=== PATIENT | male | born 1980 | race Caucasian/White ===

== ENCOUNTER 2019-05-14 21:21 | Observation (INO) | payer MEDICAID ==
[2019-05-14] MEDS ORDERED: Sodium Chloride 0.9% 10 ML Syringe FLUSH PRN (21:35)
[2019-05-14] MEDS ORDERED: Diltiazem 50 MG/10 ML SDV IVPUSH ONE (21:37)
[2019-05-14] MEDS ORDERED: Diltiazem 125 MG in Sodium Chloride 0.9% 100 ML IV SCH (21:45)
[2019-05-14] MEDS ORDERED: Sodium Chloride 0.9% 500 ML IV ONE (22:29)
[2019-05-15] MEDS ORDERED: cefTRIAXone 2 GM in Sodium Chloride 0.9% 100 ML IV ONE (00:15)
--- NOTE | 2019-05-15 00:15 | EDM.PDOC ---
ED HPI GENERAL MEDICAL PROBLEM - General Chief Complaint: Respiratory Problem Stated Complaint: CHEST PAIN PRESSURE HEAD AND EYES HAS AFIB Time Seen by Provider: 05/14/19 21:27 Source of Information: Reports: Patient History Limitations: Reports: No Limitations - History of Present Illness INITIAL COMMENTS - FREE TEXT/NARRATIVE: The patient presents with palpitations, shortness of breath and a cough. This started this morning. He also has chest tightness on the right side. He is traveling through on his way to [place] to visit family. He has a known history of A-fib. He feels like his heart is racing and it is as high as 170 at times. He denies having a fever or chills. He is on eliquis, amiodarone, glipizide and lasix. He has swelling in his legs with more swelling in his left leg. He has no abdominal pain, nausea or vomiting. Onset: Gradual Duration: Hour(s): Location: Reports: Chest Quality: Reports: Sharp Severity: Moderate Improves with: Reports: None Worsens with: Reports: None Associated Symptoms: Reports: Chest Pain, Cough, Shortness of Breath. 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: EKG Bilateral Lower Chest Pain Score (Numeric/FACES): 8 - Related Data Allergies Allergy/AdvReac Type Severity Reaction Status Date / Time No Known Allergies Allergy Verified 05/14/19 21:28 Home Meds: Home Meds Amiodarone HCl [Pacerone] 400 mg PO DAILY 05/14/19 [History] Apixaban [Eliquis] 5 mg PO DAILY 05/14/19 [History] Furosemide [Lasix] 40 mg PO DAILY 05/14/19 [History] glipiZIDE [Glucotrol XL] 5 mg PO DAILY 05/14/19 [History] Past Medical History Cardiovascular History: Reports: Afib, Hypertension Genitourinary History: Reports: Other (See Below) Other Genitourinary History: states he has "kidney issues" - Past Surgical History Cardiovascular Surgical History: Reports: Cardiac Ablation Social & Family History - Tobacco Use Smoking Status *Q: Never Smoker - Recreational Drug Use Recreational Drug Use: No ED ROS GENERAL - Review of Systems Review Of Systems: See Below Constitutional: Reports: No Symptoms HEENT: Reports: No Symptoms Respiratory: Reports: Shortness of Breath, Cough Cardiovascular: Reports: Chest Pain Endocrine: Reports: No Symptoms GI/Abdominal: Reports: No Symptoms : Reports: No Symptoms ED EXAM, GENERAL - Physical Exam Exam: See Below Exam Limited By: No Limitations General Appearance: Alert, No Apparent Distress Ears: Normal External Exam Nose: Normal Inspection Head: Atraumatic, Normocephalic Neck: Normal Inspection Respiratory/Chest: No Respiratory Distress, Decreased Breath Sounds Cardiovascular: Normal Peripheral Pulses, Tachycardia, Irregularly Irregular, Other (Bilateral 3+ edema) GI/Abdominal: Soft, Non-Tender, No Organomegaly, No Mass Back Exam: Normal Inspection Extremities: Normal Inspection EKG INTERPRETATION EKG Date: 05/15/19 Time: 21:25 Rhythm: A-Fib Rate (Beats/Min): 155 [place]: Normal QRS: Normal ST-T: Normal QT: Normal Course - Vital Signs Last Recorded V/S: Last Vital Signs Temp 98.2 F 05/14/19 21:26 Pulse 77 05/15/19 01:00 Resp 18 05/15/19 01:00 BP 104/73 05/15/19 01:00 Pulse Ox 96 05/15/19 01:00 - Orders/Labs/Meds Orders: Active Orders 24 hr Category Date Time Status Cardiac Monitoring [RC] . DIRECTED Care 05/14/19 21:35 Active EKG Documentation Completion [RC] STAT Care 05/14/19 21:36 Active Peripheral IV Care [RC] . DIRECTED Care 05/14/19 21:36 Active Ang Chest [CT] Stat Exams 05/14/19 22:30 Taken Chest 1V Frontal [CR] Stat Exams 05/14/19 21:36 Taken CBC WITH AUTO DIFF [HEME] Stat Lab 05/15/19 06:30 Received CMP [COMPREHENSIVE METABOLIC PN,CMP] [CHEM] Stat Lab 05/15/19 06:30 Received CULTURE BLOOD [BC] Stat Lab 05/15/19 00:30 Received CULTURE BLOOD [BC] Stat Lab 05/15/19 00:35 Results PRO B-TYPE NATRIUR PEPT,BNPPRO [CHEM] Stat Lab 05/14/19 21:40 Received Diltiazem 125 mg Med 05/14/19 21:45 Active Sodium Chloride 0.9% [Normal Saline] 100 ml IV TITRATE Sodium Chloride 0.9% [Saline Flush] Med 05/14/19 21:35 Active 10 ml FLUSH ASDIRECTED PRN Blood Culture x2 Reflex Set [OM.PC] Stat Oth 05/15/19 00:10 Ordered Peripheral IV Insertion Adult [OM.PC] Stat Oth 05/14/19 21:35 Ordered Medication Orders Diltiazem HCl 125 mg/ Sodium (Chloride) 125 mls @ 10 mls/hr IV TITRATE GEORGE; Protocol Last Admin: 05/14/19 21:51 Dose: 10 mg/hr, 10 mls/hr Sodium Chloride (Saline Flush) 10 ml FLUSH ASDIRECTED PRN PRN Reason: Keep Vein Open Last Admin: 05/14/19 21:45 Dose: 10 ml Labs: Laboratory Tests 05/14/19 05/14/19 05/14/19 Range/Units 21:40 21:40 21:40 WBC 13.85 H (4.23-9.07) K/mm3 RBC 4.93 (4.63-6.08) M/mm3 Hgb 13.6 L (13.7-17.5) gm/L Hct 41.6 (40.1-51.0) % MCV 84.4 (79.0-92.2) fl MCH 27.6 (25.7-32.2) pg MCHC 32.7 (32.2-35.5) g/dl RDW Std Deviation 40.7 (35.1-43.9) fL Plt Count 291 (163-337) K/mm3 MPV 10.8 (9.4-12.3) fl Neut % (Auto) 62.6 (34.0-67.9) % Lymph % (Auto) 28.1 (21.8-53.1) % [place] % (Auto) 7.7 (5.3-12.2) % Eos % (Auto) 0.9 (0.8-7.0) Baso % (Auto) 0.3 (0.1-1.2) % Neut # (Auto) 8.67 H (1.78-5.38) K/mm3 Lymph # (Auto) 3.89 H (1.32-3.57) K/mm3 [place] # (Auto) 1.07 H (0.30-0.82) K/mm3 Eos # (Auto) 0.13 (0.04-0.54) K/mm3 Baso # (Auto) 0.04 (0.01-0.08) K/mm3 D-Dimer, Quantitative 1.99 H (0.19-0.50) mg/L Sodium 140 (136-145) mEq/L Potassium 3.6 (3.5-5.1) mEq/L Chloride 102 (98-107) mEq/L Carbon Dioxide 26 (21-32) mEq/L Anion Gap 15.6 H (5-15) BUN 25 H (7-18) mg/dL Creatinine 1.6 H (0.7-1.3) mg/dL Est Cr Clr Drug Dosing 67.33 mL/min Estimated GFR (MDRD) 49 (>60) mL/min BUN/Creatinine Ratio 15.6 (14-18) Glucose 139 H (74-106) mg/dL Lactic Acid (0.4-2.0) mmol/L Calcium 8.8 (8.5-10.1) mg/dL Total Bilirubin 0.9 (0.2-1.0) mg/dL AST 52 H (15-37) U/L ALT 102 H (16-63) U/L Alkaline Phosphatase 58 (46-116) U/L Troponin I 0.022 (0.00-0.056) ng/mL Total Protein 6.7 (6.4-8.2) g/dl Albumin 3.0 L (3.4-5.0) g/dl Globulin 3.7 gm/dL Albumin/Globulin Ratio 0.8 L (1-2) TSH 3rd Generation 3.289 (0.358-3.74) uIU/mL 05/15/19 Range/Units 00:30 WBC (4.23-9.07) K/mm3 RBC (4.63-6.08) M/mm3 Hgb (13.7-17.5) gm/L Hct (40.1-51.0) % MCV (79.0-92.2) fl MCH (25.7-32.2) pg MCHC (32.2-35.5) g/dl RDW Std Deviation (35.1-43.9) fL Plt Count (163-337) K/mm3 MPV (9.4-12.3) fl Neut % (Auto) (34.0-67.9) % Lymph % (Auto) (21.8-53.1) % [place] % (Auto) (5.3-12.2) % Eos % (Auto) (0.8-7.0) Baso % (Auto) (0.1-1.2) % Neut # (Auto) (1.78-5.38) K/mm3 Lymph # (Auto) (1.32-3.57) K/mm3 [place] # (Auto) (0.30-0.82) K/mm3 Eos # (Auto) (0.04-0.54) K/mm3 Baso # (Auto) (0.01-0.08) K/mm3 D-Dimer, Quantitative (0.19-0.50) mg/L Sodium (136-145) mEq/L Potassium (3.5-5.1) mEq/L Chloride (98-107) mEq/L Carbon Dioxide (21-32) mEq/L Anion Gap (5-15) BUN (7-18) mg/dL Creatinine (0.7-1.3) mg/dL Est Cr Clr Drug Dosing mL/min Estimated GFR (MDRD) (>60) mL/min BUN/Creatinine Ratio (14-18) Glucose (74-106) mg/dL Lactic Acid 0.9 (0.4-2.0) mmol/L Calcium (8.5-10.1) mg/dL Total Bilirubin (0.2-1.0) mg/dL AST (15-37) U/L ALT (16-63) U/L Alkaline Phosphatase (46-116) U/L Troponin I (0.00-0.056) ng/mL Total Protein (6.4-8.2) g/dl Albumin (3.4-5.0) g/dl Globulin gm/dL Albumin/Globulin Ratio (1-2) TSH 3rd Generation (0.358-3.74) uIU/mL Meds: Medications Generic Name Dose Route Start Last Admin Trade Name Freq PRN Reason Stop Dose Admin Diltiazem HCl 125 mg/ Sodium 125 mls @ 10 mls/hr 05/14/19 21:45 05/14/19 21: 51 Chloride IV 10 mg/hr TITRATE GEORGE 10 mls/hr Administration Protocol 10 MG/HR Sodium Chloride 10 ml 05/14/19 21:35 05/14/19 21:45 Saline Flush FLUSH 10 ml ASDIRECTED PRN Administration Keep Vein Open Discontinued Medications Generic Name Dose Route Start Last Admin Trade Name Lesley PRN Reason Stop Dose Admin Diltiazem HCl 10 mg 05/14/19 21:37 05/14/19 21:45 Cardizem IVPUSH 05/14/19 21:38 10 mg ONETIME ONE Administration Diltiazem HCl 60 mg 05/15/19 06:07 05/15/19 06:18 Cardizem PO 05/15/19 06:08 60 mg ONETIME ONE Administration Furosemide 80 mg 05/15/19 06:06 05/15/19 06:18 Lasix IVPUSH 05/15/19 06:07 80 mg NOW ONE Administration Sodium Chloride 500 mls @ 500 mls/hr 05/14/19 22:29 05/14/19 22:45 Normal Saline IV 05/14/19 23:28 500 mls/hr .BOLUS ONE Administration Ceftriaxone Sodium 2 gm/ 100 mls @ 200 mls/hr 05/15/19 00:15 05/15/19 00:20 Sodium Chloride IV 05/15/19 00:44 200 mls/hr ONETIME ONE Administration - Re-Assessments/Exams Free Text/Narrative Re-Assessment/Exam: 05/15/19 00:23 I ordered an IV saline lock, EKG, CXR, labs, cardizem bolus of 10mg and a drip at 10mg/hr. His EKG shows atrial fribrillation with RVR of 155 with no acute changes. His CXR shows cardiomegaly with some congestive changes. His WBC was elevated at 13.85. His D-dimer was elevated at 1.99. I have ordered a CT angio of his chest. His anion gap is elevated at 15.6. His creatinine is elevated at 1.6 with a GFR of 49. His AST is elevated at 52 with an elevated at ALT of 102. His troponin is normal with a normal TSH. His CT shows pulmonary edema versus atypical infection. Several pulmonary nodules measure up to 8mm. Likely benign but he recommends follow up in 3 to 12 months. His heart rate is better now. I have ordered blood cultures, lactic acid and rocephin 2 grams IV. I feel he needs to be admitted. I will watch him here for awhile. 05/15/19 06:48 His heart rate slowed down to the 80s and 90s. I will stop the drip and give him cardizem 60mg PO. I also will give him lasix 80mg IV and repeat some labs. I called Dr Turcios and he agreed to the admission. Departure - Departure Time of Disposition: 06:50 Disposition: Admitted As Inpatient 67 Condition: Fair Clinical Impression: Atrial fibrillation with RVR, Peripheral edema, Pulmonary nodules, Cough - Discharge Information Referrals: PCP,Not In Area [Primary Care Provider] - Forms: ED Department Discharge - My Orders Last 24 Hours: My Active Orders 05/14/19 21:35 Cardiac Monitoring [RC] . DIRECTED Sodium Chloride 0.9% [Saline Flush] 10 ml FLUSH ASDIRECTED PRN Peripheral IV Insertion Adult [OM.PC] Stat 05/14/19 21:36 EKG Documentation Completion [RC] STAT Peripheral IV Care [RC] . DIRECTED Chest 1V Frontal [CR] Stat 05/14/19 21:40 PRO B-TYPE NATRIUR PEPT,BNPPRO [CHEM] Stat 05/14/19 21:45 Diltiazem 125 mg Sodium Chloride 0.9% [Normal Saline] 100 ml IV TITRATE 05/14/19 22:30 Ang Chest [CT] Stat 05/15/19 00:10 Blood Culture x2 Reflex Set [OM.PC] Stat 05/15/19 00:30 CULTURE BLOOD [BC] Stat 05/15/19 00:35 CULTURE BLOOD [BC] Stat 05/15/19 06:30 CBC WITH AUTO DIFF [HEME] Stat CMP [COMPREHENSIVE METABOLIC PN,CMP] [CHEM] Stat - Assessment/Plan Last 24 Hours: My Active Orders 05/14/19 21:35 Cardiac Monitoring [RC] . DIRECTED Sodium Chloride 0.9% [Saline Flush] 10 ml FLUSH ASDIRECTED PRN Peripheral IV Insertion Adult [OM.PC] Stat 05/14/19 21:36 EKG Documentation Completion [RC] STAT Peripheral IV Care [RC] . DIRECTED Chest 1V Frontal [CR] Stat 05/14/19 21:40 PRO B-TYPE NATRIUR PEPT,BNPPRO [CHEM] Stat 05/14/19 21:45 Diltiazem 125 mg Sodium Chloride 0.9% [Normal Saline] 100 ml IV TITRATE 05/14/19 22:30 Ang Chest [CT] Stat 05/15/19 00:10 Blood Culture x2 Reflex Set [OM.PC] Stat 05/15/19 00:30 CULTURE BLOOD [BC] Stat 05/15/19 00:35 CULTURE BLOOD [BC] Stat 05/15/19 06:30 CBC WITH AUTO DIFF [HEME] Stat CMP [COMPREHENSIVE METABOLIC PN,CMP] [CHEM] Stat
[2019-05-15] MEDS ORDERED: Furosemide 40 MG/4 ML VIAL IVPUSH ONE (06:06)
[2019-05-15] MEDS ORDERED: Diltiazem IR 60 MG Tab PO ONE (06:07)
--- NOTE | 2019-05-15 07:19 | CT ---
CT chest Technique: Multiple axial sections through the chest were obtained. Intravenous contrast was utilized. Study has been performed as a pulmonary angiogram protocol. Findings: Pulmonary arteries are moderately well-opacified. No filling defects are seen to indicate pulmonary embolism. Heart is slightly enlarged. Small mediastinal lymph nodes are seen which are within normal limits. Small portion of the visualized left upper abdomen shows a nonvisualized left kidney. Lungs show no acute parenchymal change. Noncalcified nodule noted within the right middle lobe measuring 9 mm. Much smaller nodules are seen within the subpleural location within both lung bases. Ground-glass appearance is seen. Bone window settings were reviewed which show degenerative endplate spurring within the spine. Impression: 1. No findings of pulmonary embolism. 2. Heart is mildly enlarged. Pulmonary vessels are slightly congested. Difficult to exclude early CHF. 3. 9 mm nodule within the right middle lobe. Recommend repeat noncontrast chest CT study in 6 months. Diagnostic code #9 I agree with preliminary report from [facility], finalized on 05/13/19, 12:14 AM Central Time
--- NOTE | 2019-05-15 07:19 | CR ---
Chest: Portable view of the chest was obtained. Comparison: No prior chest x-ray is available. Findings: Heart is enlarged. Pulmonary vessels are minimally increased. Lungs otherwise are clear. Bony structures are unremarkable. Impression: 1. Cardiomegaly. Mild pulmonary vascular congestion. Diagnostic code #3
[2019-05-15] MEDS ORDERED: Doxycycline 100 MG Cap PO SCH (09:15)
[2019-05-15] MEDS ORDERED: Doxycycline 100 MG in Sodium Chloride 0.9% 100 ML IV ONE (09:30)
--- NOTE | 2019-05-15 09:47 | PCM.HP ---
H&P History of Present Illness - General Date of Service: 05/15/19 Admit Problem/Dx: Admission Diagnosis/Problem Admission Diagnosis/Problem Atrial fibrillation Source of Information: Patient - History of Present Illness Initial Comments - Free Text/Narative: 38-year-old male with history of atrial fibrillation presented to the emergency room last night with rapid ventricular response. Patient states that yesterday morning he started developing some shortness of breath, dyspnea on exertion, chest pain, and difficulty swallowing. Patient states he comes in and out of A. fib, but this time it would not resolve. He complained of right upper chest pain or pressure. He states he vomited after drinking water. Patient is on amiodarone, but had not taken it in 2 days secondary to traveling from [place], [place] through [facility] on his way to [place]. In the emergency room patient was given a bolus of Cardizem 10 mg IV and then placed on a Cardizem drip. Rate did get under control and the Cardizem drip was stopped and he was started on Cardizem IR 60 mg this morning. Patient's last dose of Eliquis was yesterday morning. Patient also states his lower extremities are more swollen than normal and he was given IV Lasix in the emergency room. Patient did have a positive d-dimer and a CT scan showed early pulmonary congestion consistent with early CHF. Also there was a 9 mm nodule in the right middle lobe. Recommendation was to get a noncontrast CT in 6 months. There was also some concern for atypical infection on CT. He was given Rocephin in the emergency room. Patient is currently resting comfortably with no chest pain, palpitations, or shortness of breath. He does complain still of some lower extremity edema. Bilateral Lower Chest Pain Score (Numeric/FACES): 8 - Related Data Allergies/Adverse Reactions: Allergies Allergy/AdvReac Type Severity Reaction Status Date / Time No Known Allergies Allergy Verified 05/14/19 21:28 Home Medications: Home Meds Amiodarone HCl [Pacerone] 400 mg PO DAILY 05/14/19 [History] Apixaban [Eliquis] 5 mg PO BID 05/14/19 [History] Furosemide [Lasix] 40 mg PO DAILY 05/14/19 [History] glipiZIDE [Glucotrol XL] 5 mg PO DAILY 05/14/19 [History] Past Medical History Cardiovascular History: Reports: Afib, Hypertension Genitourinary History: Reports: Other (See Below) Other Genitourinary History: states he has "kidney issues", patient states doctor had told him one kidney was failing after a test showed he had alot of protein in urine...about a year ago Other Endocrine/Metabolic History: patient used to take glipizide...states the doctor took him off of it. - Past Surgical History Cardiovascular Surgical History: Reports: Cardiac Ablation Social & Family History - Family History Endocrine/Metabolic: Reports: Diabetes, Type I Other Endocrine/Metabolic Family History: father had diabetes and after infection of the bloodstream and amputation of the leg - Tobacco Use Smoking Status *Q: Never Smoker Second Hand Smoke Exposure: No - Caffeine Use Caffeine Use: Reports: Energy Drinks, Soda, Tea - Recreational Drug Use Recreational Drug Use: No H&P Review of Systems - Review of Systems: Review Of Systems: ROS reveals no pertinent complaints other than HPI. Exam - Exam Exam: See Below - Vital Signs Vital Signs: Last Vital Signs Temp 98.2 F 05/15/19 08:10 Pulse 83 05/15/19 08:23 Resp 18 05/15/19 08:23 BP 133/81 05/15/19 08:23 Pulse Ox 93 L 05/15/19 08:23 Weight: 354 lb 9.6 oz - Exam General: Alert, Oriented HEENT: Conjunctiva Clear, Mucosa Moist & [place], Posterior Pharynx Clear Neck: Supple, Trachea Midline Lungs: Clear to Auscultation, Normal Respiratory Effort Cardiovascular: Normal S1, Normal S2, Irregular Rhythm. No: Tachycardia GI/Abdominal Exam: Normal Bowel Sounds Extremities: Normal Inspection, Pedal Edema (2+ lower extremity pitting edema up to his knees) Skin: Warm, Dry, Intact Neurological: Cranial Nerves Intact Neuro Extensive - Mental Status: Alert, Oriented x3, Normal Mood/Affect, Normal Cognition Neuro Extensive - Motor, Sensory, Reflexes: CN II-XII Intact Psychiatric: Alert, Normal Affect, Normal Mood - Patient Data Lab Results Last 24 hrs: Laboratory Results - last 24 hr 05/14/19 05/14/19 05/14/19 Range/Units 21:40 21:40 21:40 WBC 13.85 H (4.23-9.07) K/mm3 RBC 4.93 (4.63-6.08) M/mm3 Hgb 13.6 L (13.7-17.5) gm/L Hct 41.6 (40.1-51.0) % MCV 84.4 (79.0-92.2) fl MCH 27.6 (25.7-32.2) pg MCHC 32.7 (32.2-35.5) g/dl RDW Std Deviation 40.7 (35.1-43.9) fL Plt Count 291 (163-337) K/mm3 MPV 10.8 (9.4-12.3) fl Neut % (Auto) 62.6 (34.0-67.9) % Lymph % (Auto) 28.1 (21.8-53.1) % [place] % (Auto) 7.7 (5.3-12.2) % Eos % (Auto) 0.9 (0.8-7.0) Baso % (Auto) 0.3 (0.1-1.2) % Neut # (Auto) 8.67 H (1.78-5.38) K/mm3 Lymph # (Auto) 3.89 H (1.32-3.57) K/mm3 [place] # (Auto) 1.07 H (0.30-0.82) K/mm3 Eos # (Auto) 0.13 (0.04-0.54) K/mm3 Baso # (Auto) 0.04 (0.01-0.08) K/mm3 D-Dimer, Quantitative 1.99 H (0.19-0.50) mg/L Sodium 140 (136-145) mEq/L Potassium 3.6 (3.5-5.1) mEq/L Chloride 102 (98-107) mEq/L Carbon Dioxide 26 (21-32) mEq/L Anion Gap 15.6 H (5-15) BUN 25 H (7-18) mg/dL Creatinine 1.6 H (0.7-1.3) mg/dL Est Cr Clr Drug Dosing 67.33 mL/min Estimated GFR (MDRD) 49 (>60) mL/min BUN/Creatinine Ratio 15.6 (14-18) Glucose 139 H (74-106) mg/dL Lactic Acid (0.4-2.0) mmol/L Calcium 8.8 (8.5-10.1) mg/dL Total Bilirubin 0.9 (0.2-1.0) mg/dL AST 52 H (15-37) U/L ALT 102 H (16-63) U/L Alkaline Phosphatase 58 (46-116) U/L Troponin I 0.022 (0.00-0.056) ng/mL Total Protein 6.7 (6.4-8.2) g/dl Albumin 3.0 L (3.4-5.0) g/dl Globulin 3.7 gm/dL Albumin/Globulin Ratio 0.8 L (1-2) TSH 3rd Generation 3.289 (0.358-3.74) uIU/mL 05/15/19 05/15/19 05/15/19 Range/Units 00:30 06:30 06:30 WBC 10.68 H (4.23-9.07) K/mm3 RBC 5.10 (4.63-6.08) M/mm3 Hgb 14.1 (13.7-17.5) gm/L Hct 43.9 (40.1-51.0) % MCV 86.1 (79.0-92.2) fl MCH 27.6 (25.7-32.2) pg MCHC 32.1 L (32.2-35.5) g/dl RDW Std Deviation 41.9 (35.1-43.9) fL Plt Count 259 (163-337) K/mm3 MPV 10.6 (9.4-12.3) fl Neut % (Auto) 57.3 (34.0-67.9) % Lymph % (Auto) 31.1 (21.8-53.1) % [place] % (Auto) 9.8 (5.3-12.2) % Eos % (Auto) 1.4 (0.8-7.0) Baso % (Auto) 0.2 (0.1-1.2) % Neut # (Auto) 6.12 H (1.78-5.38) K/mm3 Lymph # (Auto) 3.32 (1.32-3.57) K/mm3 [place] # (Auto) 1.05 H (0.30-0.82) K/mm3 Eos # (Auto) 0.15 (0.04-0.54) K/mm3 Baso # (Auto) 0.02 (0.01-0.08) K/mm3 D-Dimer, Quantitative (0.19-0.50) mg/L Sodium 141 (136-145) mEq/L Potassium 4.0 (3.5-5.1) mEq/L Chloride 104 (98-107) mEq/L Carbon Dioxide 29 (21-32) mEq/L Anion Gap 12.0 (5-15) BUN 23 H (7-18) mg/dL Creatinine 1.5 H (0.7-1.3) mg/dL Est Cr Clr Drug Dosing 71.81 mL/min Estimated GFR (MDRD) 53 (>60) mL/min BUN/Creatinine Ratio 15.3 (14-18) Glucose 111 H (74-106) mg/dL Lactic Acid 0.9 (0.4-2.0) mmol/L Calcium 8.6 (8.5-10.1) mg/dL Total Bilirubin 0.4 (0.2-1.0) mg/dL AST 36 (15-37) U/L ALT 90 H (16-63) U/L Alkaline Phosphatase 55 (46-116) U/L Troponin I (0.00-0.056) ng/mL Total Protein 6.6 (6.4-8.2) g/dl Albumin 2.9 L (3.4-5.0) g/dl Globulin 3.7 gm/dL Albumin/Globulin Ratio 0.8 L (1-2) TSH 3rd Generation (0.358-3.74) uIU/mL Result Diagrams: 05/15/19 06:30 05/15/19 06:30 Dioni Results Last 24 hrs: Microbiology 05/15/19 00:35 Anaerobic Blood Culture - Final Blood - Venous - Lab Draw EKG INTERPRETATION EKG Date: 05/15/19 Rhythm: A-Fib Rate (Beats/Min): 107 [place]: Normal P-Wave: Absent QRS: Normal ST-T: Other (inverted T waves V2-3) QT: Prolonged (May be rate related) Comparison: No Change - Problem List (1) Atrial fibrillation with RVR SNOMED Code(s): 034455835357212 ICD Code: I48.91 - UNSPECIFIED ATRIAL FIBRILLATION Status: Acute Current Visit: Yes (2) Peripheral edema SNOMED Code(s): 302200116 ICD Code: R60.9 - EDEMA, UNSPECIFIED Status: Acute Current Visit: Yes (3) Pulmonary nodules SNOMED Code(s): 204012349 ICD Code: R91.8 - OTHER NONSPECIFIC ABNORMAL FINDING OF LUNG FIELD Status: Acute Current Visit: Yes Problem List Initiated/Reviewed/Updated: Yes Orders Last 24hrs: Active Orders 24 hr Category Date Time Status Patient Status [ADT] Routine ADT 05/15/19 06:52 Active Blood Glucose Check, Bedside [] WITHMEALSANDBED Care 05/15/19 09:41 Ordered Height and Weight [RC] DAILY Care 05/15/19 09:41 Ordered Intake and Output Strict [] ASDIRECTED Care 05/15/19 09:44 Ordered Oxygen Therapy [RC] PRN Care 05/15/19 09:41 Ordered Up ad Aminata [] ASDIRECTED Care 05/15/19 09:41 Ordered VTE/DVT Education [RC] PER UNIT ROUTINE Care 05/15/19 09:41 Ordered Vital Signs [RC] Q4H Care 05/15/19 09:41 Ordered Consistent Carbohydrate Diet [DIET] Diet 05/15/19 Breakfast Ordered CBC WITH AUTO DIFF [HEME] AM Lab 05/16/19 05:11 Ordered COMPREHENSIVE METABOLIC PN,CMP [CHEM] AM Lab 05/16/19 05:11 Ordered CULTURE BLOOD [BC] Stat Lab 05/15/19 00:30 Received CULTURE BLOOD [BC] Stat Lab 05/15/19 00:35 Results MAGNESIUM [CHEM] AM Lab 05/16/19 05:11 Ordered PRO B-TYPE NATRIUR PEPT,BNPPRO [CHEM] Stat Lab 05/14/19 21:40 Received Amiodarone HCl [Pacerone] Med 05/16/19 09:00 Ordered 400 mg PO DAILY Apixaban [Eliquis] Med 05/15/19 09:15 Ordered 5 mg PO DAILY Diltiazem 125 mg Med 05/14/19 21:45 Active Sodium Chloride 0.9% [Normal Saline] 100 ml IV TITRATE Diltiazem IR [Cardizem] Med 05/15/19 12:00 Ordered 60 mg PO Q6HR Doxycycline [Vibramycin] Med 05/15/19 21:00 Active 100 mg PO Q12HR Doxycycline [Vibramycin] 100 mg Med 05/15/19 09:10 Ordered Sodium Chloride 0.9% [Normal Saline] 100 ml IV ONETIME Insulin Lispro [HumaLOG] Med 05/15/19 11:00 Ordered See Protocol SUBCUT QIDACANDBED Sodium Chloride 0.9% [Saline Flush] Med 05/14/19 21:35 Active 10 ml FLUSH ASDIRECTED PRN Blood Culture x2 Reflex Set [OM.PC] Stat Oth 05/15/19 00:10 Ordered Peripheral IV Insertion Adult [OM.PC] Stat Ot 05/14/19 21:35 Ordered Code Status [Resuscitation Status] Routine Resus Stat 05/15/19 08:48 Ordered Medication Orders Apixaban (Eliquis) 5 mg PO DAILY GEORGE Diltiazem HCl (Cardizem) 60 mg PO Q6HR GEORGE Doxycycline Hyclate (Vibramycin) 100 mg PO Q12HR GEORGE Diltiazem HCl 125 mg/ Sodium (Chloride) 125 mls @ 10 mls/hr IV TITRATE GEORGE; Protocol Last Admin: 05/14/19 21:51 Dose: 10 mg/hr, 10 mls/hr Doxycycline Hyclate 100 mg/ (Sodium Chloride) 100 mls @ 100 mls/hr IV ONETIME ONE Stop: 05/15/19 10:29 Insulin Human Lispro (Humalog) 0 unit SUBCUT QIDACANDBED GEORGE; Protocol Non-Formulary Medication (Amiodarone Hcl [Pacerone]) 400 mg PO DAILY GEORGE Sodium Chloride (Saline Flush) 10 ml FLUSH ASDIRECTED PRN PRN Reason: Keep Vein Open Last Admin: 05/14/19 21:45 Dose: 10 ml Assessment/Plan Comment:: Assessment * 38-year-old male with history of atrial fibrillation and cardiac ablation was noncompliant with medication secondary to travel presented to the emergency room with rapid ventricular response. * Rate was controlled with IV and oral Cardizem and transferred to telemetry for observation. * Mild pulmonary edema with rate related congestive heart failure * Morbid obesity with type 2 diabetes on oral meds * Possible atypical pneumonia Plan * Continue on Cardizem IR 60 mg every 6 hours for rate control. 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 * DC Rocephin * Full code * VTE prophylaxis with Eliquis * Ambulate in halls * Anticipated length of stay less than 2 nights
[2019-05-15] MEDS ORDERED: Diltiazem IR 60 MG Tab PO SCH (12:00)
[2019-05-15] MEDS: Insulin Lispro 100 Units/ML 3 ML Vial SUBCUT SCH ×3 (12:34→21:44)
[2019-05-15] MEDS: Apixaban 5 MG Tab PO SCH ×2 (12:43→21:43)
--- NOTE | 2019-05-15 15:20 | US ---
Bilateral lower extremity deep venous ultrasound: Duplex and color flow imaging was obtained of the right and left common femoral, proximal greater saphenous, superficial femoral, popliteal, posterior tibial and peroneal veins. Findings: Distal superficial femoral veins on both sides are not well seen due to patient body habitus. Other veins show normal phasic flow, augmentation and compression. Impression: 1. No evidence of deep venous thrombosis within either the right or left lower extremities. Diagnostic code #2
[2019-05-15] MEDS: Amiodarone 200 MG Tab PO SCH (15:31)
[2019-05-15] MEDS: Furosemide 40 MG Tab PO SCH (15:31)
[2019-05-15] MEDS: Metoprolol Tartrate 100 MG Tab PO SCH (18:53)
[2019-05-15] MEDS ORDERED: Ipratropium 0.02% 0.5 MG/2.5 ML Neb Soln NEB SCH (21:14)
[2019-05-15] MEDS ORDERED: Ipratropium 0.02% 0.5 MG/2.5 ML Neb Soln NEB PRN (21:18)
[2019-05-15] MEDS ORDERED: hydrOXYzine HCl 50 MG Tab PO ONE (21:30)
[2019-05-15] MEDS: Doxycycline 100 MG Cap PO SCH (21:42)
[2019-05-15] MEDS: Temazepam 15 MG Cap PO PRN (23:50)
[2019-05-16] MEDS: Furosemide 40 MG Tab PO SCH ×2 (06:59→14:03)
[2019-05-16] MEDS: Metoprolol Tartrate 100 MG Tab PO SCH ×2 (07:00→17:58)
[2019-05-16] MEDS: Insulin Lispro 100 Units/ML 3 ML Vial SUBCUT SCH ×4 (07:25→21:14)
[2019-05-16] MEDS ORDERED: AMIODARONE HCL 400 MG PO SCH (09:00)
[2019-05-16] MEDS: Amiodarone 200 MG Tab PO SCH (09:17)
[2019-05-16] MEDS: Doxycycline 100 MG Cap PO SCH ×2 (09:17→20:43)
[2019-05-16] MEDS: Apixaban 5 MG Tab PO SCH ×2 (09:17→20:43)
--- NOTE | 2019-05-16 09:27 | CR ---
Chest: Frontal view of the chest was obtained as well as lateral view. Comparison: Prior chest CT of 05/14/19 and chest x-ray also of 05/14/19. Heart is enlarged. Pulmonary vessels are felt to be congested. Lungs otherwise are clear. Mild degenerative change is scattered within the spine. Impression: 1. Cardiomegaly with mild pulmonary vascular congestion. Pulmonary vessels may be slightly more congested than on prior exam. 2. Other incidental findings. Diagnostic code #3
[2019-05-16] MEDS ORDERED: Lisinopril 20 MG Tab PO SCH (09:30)
[2019-05-16] MEDS ORDERED: Metoprolol Tartrate 25 MG Tab PO SCH (10:00)
--- NOTE | 2019-05-16 10:09 | PCM.PN ---
- General Info Date of Service: 05/16/19 Admission Dx/Problem (Free Text): Admission Diagnosis/Problem Admission Diagnosis/Problem Atrial fibrillation Subjective Update: Patient had difficult night last night. He complained of shortness of breath and lower chest discomfort. Patient was given Atrovent nebulizer, hydroxyzine, and Restoril which helps him rest. Patient's telemetry shows his pulse be consistently in the mid to upper 90s and lower 100s. Blood pressures overnight were also elevated. Spoke with his clinical nurse manager Dr. Bassem Kwon in [place], [place] recommended restarting his home meds. Dr. Kwon stated that he was supposed to follow-up for echocardiogram but did not. Myocardial perfusion scan did show ejection fraction of 25%, but Dr. Kwon believes that is artificially low and he will need an echo as an outpatient. Also, patient has severe sleep apnea and is supposed to be on BiPAP at home. Patient states he has not received a BiPAP. We have records of his most recent sleep study that was done September 10, 2018. Diagnosis obstructive sleep apnea. Recommendations: Recommend a trial of auto BiPAP EPAP min 15 cm water pressure, IPAP maximum 25, pressure support of 4 cm of water pressure. Patient was placed on BiPAP last night. - Review of Systems General: Reports: No Symptoms HEENT: Reports: No Symptoms Pulmonary: Reports: Shortness of Breath, Pleuritic Chest Pain. Denies: Cough Cardiovascular: Denies: Chest Pain, Dyspnea on Exertion, Orthopnea Gastrointestinal: Reports: No Symptoms. Denies: Abdominal Pain Musculoskeletal: Reports: No Symptoms Psychiatric: Reports: No Symptoms - Patient Data Vitals - Most Recent: Last Vital Signs Temp 98.1 F 05/16/19 05:14 Pulse 52 L 05/16/19 08:38 Resp 20 05/16/19 08:38 BP 114/91 H 05/16/19 08:00 Pulse Ox 89 L 05/16/19 08:38 Weight - Most Recent: 356 lb I&O - Last 24 Hours: Intake & Output 05/15/19 05/16/19 05/16/19 22:59 06:59 14:59 Intake Total 1820 250 Output Total 800 0 Balance 1020 250 Lab Results Last 24 Hours: Laboratory Results - last 24 hr 05/14/19 05/15/19 05/15/19 Range/Units 21:40 16:54 20:46 WBC (4.23-9.07) K/mm3 RBC (4.63-6.08) M/mm3 Hgb (13.7-17.5) gm/L Hct (40.1-51.0) % MCV (79.0-92.2) fl MCH (25.7-32.2) pg MCHC (32.2-35.5) g/dl RDW Std Deviation (35.1-43.9) fL Plt Count (163-337) K/mm3 MPV (9.4-12.3) fl Neut % (Auto) (34.0-67.9) % Lymph % (Auto) (21.8-53.1) % [place] % (Auto) (5.3-12.2) % Eos % (Auto) (0.8-7.0) Baso % (Auto) (0.1-1.2) % Neut # (Auto) (1.78-5.38) K/mm3 Lymph # (Auto) (1.32-3.57) K/mm3 [place] # (Auto) (0.30-0.82) K/mm3 Eos # (Auto) (0.04-0.54) K/mm3 Baso # (Auto) (0.01-0.08) K/mm3 Sodium (136-145) mEq/L Potassium (3.5-5.1) mEq/L Chloride (98-107) mEq/L Carbon Dioxide (21-32) mEq/L Anion Gap (5-15) BUN (7-18) mg/dL Creatinine (0.7-1.3) mg/dL Est Cr Clr Drug Dosing mL/min Estimated GFR (MDRD) (>60) mL/min BUN/Creatinine Ratio (14-18) Glucose (74-106) mg/dL POC Glucose 145 H 131 H (70-105) mg/dL Calcium (8.5-10.1) mg/dL Magnesium (1.8-2.4) mg/dl Total Bilirubin (0.2-1.0) mg/dL AST (15-37) U/L ALT (16-63) U/L Alkaline Phosphatase (46-116) U/L NT-Pro-B Natriuret Pep 1202 H (0-125) pg/mL Total Protein (6.4-8.2) g/dl Albumin (3.4-5.0) g/dl Globulin gm/dL Albumin/Globulin Ratio (1-2) 05/16/19 05/16/19 05/16/19 Range/Units 05:11 05:11 05:11 WBC 13.51 H (4.23-9.07) K/mm3 RBC 5.27 (4.63-6.08) M/mm3 Hgb 14.5 (13.7-17.5) gm/L Hct 45.4 (40.1-51.0) % MCV 86.1 (79.0-92.2) fl MCH 27.5 (25.7-32.2) pg MCHC 31.9 L (32.2-35.5) g/dl RDW Std Deviation 42.7 (35.1-43.9) fL Plt Count 275 (163-337) K/mm3 MPV 11.1 (9.4-12.3) fl Neut % (Auto) 69.5 H (34.0-67.9) % Lymph % (Auto) 22.0 (21.8-53.1) % [place] % (Auto) 7.4 (5.3-12.2) % Eos % (Auto) 0.8 (0.8-7.0) Baso % (Auto) 0.2 (0.1-1.2) % Neut # (Auto) 9.38 H (1.78-5.38) K/mm3 Lymph # (Auto) 2.97 (1.32-3.57) K/mm3 [place] # (Auto) 1.00 H (0.30-0.82) K/mm3 Eos # (Auto) 0.11 (0.04-0.54) K/mm3 Baso # (Auto) 0.03 (0.01-0.08) K/mm3 Sodium 139 (136-145) mEq/L Potassium 3.8 (3.5-5.1) mEq/L Chloride 102 (98-107) mEq/L Carbon Dioxide 29 (21-32) mEq/L Anion Gap 11.8 (5-15) BUN 23 H (7-18) mg/dL Creatinine 1.5 H (0.7-1.3) mg/dL Est Cr Clr Drug Dosing 71.52 mL/min Estimated GFR (MDRD) 53 (>60) mL/min BUN/Creatinine Ratio 15.3 (14-18) Glucose 115 H (74-106) mg/dL POC Glucose (70-105) mg/dL Calcium 9.0 (8.5-10.1) mg/dL Magnesium 1.8 (1.8-2.4) mg/dl Total Bilirubin 0.8 (0.2-1.0) mg/dL AST 31 (15-37) U/L ALT 86 H (16-63) U/L Alkaline Phosphatase 58 (46-116) U/L NT-Pro-B Natriuret Pep 677 H (0-125) pg/mL Total Protein 7.1 (6.4-8.2) g/dl Albumin 3.0 L (3.4-5.0) g/dl Globulin 4.1 gm/dL Albumin/Globulin Ratio 0.7 L (1-2) 05/16/19 Range/Units 07:02 WBC (4.23-9.07) K/mm3 RBC (4.63-6.08) M/mm3 Hgb (13.7-17.5) gm/L Hct (40.1-51.0) % MCV (79.0-92.2) fl MCH (25.7-32.2) pg MCHC (32.2-35.5) g/dl RDW Std Deviation (35.1-43.9) fL Plt Count (163-337) K/mm3 MPV (9.4-12.3) fl Neut % (Auto) (34.0-67.9) % Lymph % (Auto) (21.8-53.1) % [place] % (Auto) (5.3-12.2) % Eos % (Auto) (0.8-7.0) Baso % (Auto) (0.1-1.2) % Neut # (Auto) (1.78-5.38) K/mm3 Lymph # (Auto) (1.32-3.57) K/mm3 [place] # (Auto) (0.30-0.82) K/mm3 Eos # (Auto) (0.04-0.54) K/mm3 Baso # (Auto) (0.01-0.08) K/mm3 Sodium (136-145) mEq/L Potassium (3.5-5.1) mEq/L Chloride (98-107) mEq/L Carbon Dioxide (21-32) mEq/L Anion Gap (5-15) BUN (7-18) mg/dL Creatinine (0.7-1.3) mg/dL Est Cr Clr Drug Dosing mL/min Estimated GFR (MDRD) (>60) mL/min BUN/Creatinine Ratio (14-18) Glucose (74-106) mg/dL POC Glucose 111 H (70-105) mg/dL Calcium (8.5-10.1) mg/dL Magnesium (1.8-2.4) mg/dl Total Bilirubin (0.2-1.0) mg/dL AST (15-37) U/L ALT (16-63) U/L Alkaline Phosphatase (46-116) U/L NT-Pro-B Natriuret Pep (0-125) pg/mL Total Protein (6.4-8.2) g/dl Albumin (3.4-5.0) g/dl Globulin gm/dL Albumin/Globulin Ratio (1-2) Dioni Results Last 24 Hours: Microbiology 05/15/19 00:35 Aerobic Blood Culture - Preliminary Blood - Venous - Lab Draw NO GROWTH AFTER 1 DAY Anaerobic Blood Culture - Final 05/15/19 00:30 Aerobic Blood Culture - Preliminary Blood - Venous NO GROWTH AFTER 1 DAY Anaerobic Blood Culture - Preliminary NO GROWTH AFTER 1 DAY Med Orders - Current: Current Medications Amiodarone HCl (Cordarone) 400 mg PO DAILY [facility] Last Admin: 05/16/19 09:17 Dose: 400 mg Apixaban (Eliquis) 5 mg PO BID [facility] Last Admin: 05/16/19 09:17 Dose: 5 mg Doxycycline Hyclate (Vibramycin) 100 mg PO Q12HR [facility] Last Admin: 05/16/19 09:17 Dose: 100 mg Furosemide (Lasix) 40 mg PO BIDDIURETIC [facility] Last Admin: 05/16/19 06:59 Dose: 40 mg Insulin Human Lispro (Humalog) 0 unit SUBCUT QIDACANDBED [facility]; Protocol Last Admin: 05/16/19 07:25 Dose: Not Given Ipratropium [place] (Atrovent) 0.5 mg NEB Q6H PRN PRN Reason: Shortness of Breath Last Admin: 05/15/19 21:26 Dose: 0.5 mg Lisinopril (Prinivil) 20 mg PO DAILY [facility] Magnesium Hydroxide (Milk Of Magnesia) 30 ml PO ONETIME ONE Stop: 05/16/19 11:31 Metoprolol Tartrate (Lopressor) 100 mg PO Q12H [facility] Last Admin: 05/16/19 07:00 Dose: 100 mg Metoprolol Tartrate (Lopressor) 25 mg PO Q12H [facility] Sodium Chloride (Saline Flush) 10 ml FLUSH ASDIRECTED PRN PRN Reason: Keep Vein Open Last Admin: 05/14/19 21:45 Dose: 10 ml Temazepam (Restoril) 15 mg PO BEDTIME PRN PRN Reason: Sleep Last Admin: 05/15/19 23:50 Dose: 15 mg Discontinued Medications Diltiazem HCl (Cardizem) 10 mg IVPUSH ONETIME ONE Stop: 05/14/19 21:38 Last Admin: 05/14/19 21:45 Dose: 10 mg Diltiazem HCl (Cardizem) 60 mg PO ONETIME ONE Stop: 05/15/19 06:08 Last Admin: 05/15/19 06:18 Dose: 60 mg Diltiazem HCl (Cardizem) 60 mg PO Q6HR [facility] Last Admin: 05/15/19 12:43 Dose: 60 mg Doxycycline Hyclate (Vibramycin) 100 mg PO Q12HR [facility] Furosemide (Lasix) 80 mg IVPUSH NOW ONE Stop: 05/15/19 06:07 Last Admin: 05/15/19 06:18 Dose: 80 mg Hydroxyzine HCl (Atarax) 50 mg PO ONETIME ONE Stop: 05/15/19 21:31 Last Admin: 05/15/19 21:43 Dose: 50 mg Diltiazem HCl 125 mg/ Sodium (Chloride) 125 mls @ 10 mls/hr IV TITRATE [facility]; Protocol Last Admin: 05/14/19 21:51 Dose: 10 mg/hr, 10 mls/hr Sodium Chloride (Normal Saline) 500 mls @ 500 mls/hr IV .BOLUS ONE Stop: 05/14/19 23:28 Last Admin: 05/14/19 22:45 Dose: 500 mls/hr Ceftriaxone Sodium 2 gm/ (Sodium Chloride) 100 mls @ 200 mls/hr IV ONETIME ONE Stop: 05/15/19 00:44 Last Admin: 05/15/19 00:20 Dose: 200 mls/hr Doxycycline Hyclate 100 mg/ (Sodium Chloride) 100 mls @ 100 mls/hr IV ONETIME ONE Stop: 05/15/19 10:29 Last Admin: 05/15/19 10:27 Dose: 100 mls/hr Ipratropium [place] (Atrovent) 0.5 mg NEB Q6HRRT [facility] Last Admin: 05/15/19 21:47 Dose: Not Given Non-Formulary Medication (Amiodarone Hcl [Pacerone]) 400 mg PO DAILY [facility] - Exam Quality Assessment: No: Supplemental Oxygen General: Alert, Oriented Neck: Supple Lungs: Decreased Breath Sounds, Wheezing (Mild faint wheeze), Other (Slight increase in respiratory rate) Cardiovascular: Irregular Rhythm (And rate) GI/Abdominal Exam: Normal Bowel Sounds, Soft, Non-Tender, No Organomegaly, No Distention Extremities: Normal Inspection, Pedal Edema (2+ up to his knees) Skin: Warm, Dry, Intact Psy/Mental Status: Alert, Normal Affect, Normal Mood - Problem List & Annotations (1) Atrial fibrillation with RVR SNOMED Code(s): 349886601695106 Code(s): I48.91 - UNSPECIFIED ATRIAL FIBRILLATION Status: Acute Current Visit: Yes (2) Peripheral edema SNOMED Code(s): 586273069 Code(s): R60.9 - EDEMA, UNSPECIFIED Status: Acute Current Visit: Yes (3) Pulmonary nodules SNOMED Code(s): 476900874 Code(s): R91.8 - OTHER NONSPECIFIC ABNORMAL FINDING OF LUNG FIELD Status: Acute Current Visit: Yes - Problem List Review Problem List Initiated/Reviewed/Updated: Yes - My Orders Last 24 Hours: My Active Orders 05/15/19 09:41 Blood Glucose Check, Bedside [] WITHMEALSANDBED Height and Weight [RC] 04 Oxygen Therapy [RC] PRN VTE/DVT Education [RC] DAILY Vital Signs [RC] Q4HR 05/15/19 09:44 Intake and Output Strict [] Q2HR 05/15/19 10:23 Patient Status [ADT] Routine 05/15/19 10:30 Apixaban [Eliquis] 5 mg PO BID 05/15/19 11:00 Insulin Lispro [HumaLOG] See Protocol SUBCUT QIDACANDBED 05/15/19 14:01 BIPAP Adult [RT BiPAP/CPAP] [RC] ASDIRECTED 05/15/19 14:30 Amiodarone [Cordarone] 400 mg PO DAILY 05/15/19 15:00 Furosemide [Lasix] 40 mg PO BIDDIURETIC 05/15/19 18:00 Metoprolol Tartrate [Lopressor] 100 mg PO Q12H 05/15/19 21:00 Doxycycline [Vibramycin] 100 mg PO Q12HR 05/15/19 21:15 RT Post Treatment Assessment [RC] Click to Edit RT Pre-Treatment Assessment [RC] Click to Edit 05/15/19 21:18 Ipratropium [Atrovent] 0.5 mg NEB Q6H PRN 05/15/19 23:38 Temazepam [Restoril] 15 mg PO BEDTIME PRN 05/16/19 03:02 Up ad Aminata [RC] ASDIRECTED 05/16/19 09:30 Lisinopril [Prinivil] 20 mg PO DAILY 05/16/19 10:00 Metoprolol Tartrate [Lopressor] 25 mg PO Q12H 05/16/19 11:30 Magnesium Hydroxide [Milk of Magnesia] 30 ml PO ONETIME ONE - Plan Plan:: Assessment * 38-year-old male with history of atrial fibrillation and cardiac ablation, diabetes, hypertension, severe sleep apnea, and possible heart failure with reduced ejection fraction was noncompliant with medication secondary to travel presented to the emergency room with rapid ventricular response. * Rate was controlled with IV and oral Cardizem and transferred to telemetry for observation. * Mild pulmonary edema with rate related congestive heart failure. Myocardial perfusion scan done in July but his ejection fraction 25% which is likely lower than actual ejection fraction * Morbid obesity with type 2 diabetes on oral meds * Possible atypical pneumonia. White count did increase. * Anxiety Plan * Continue home dose of amiodarone at 400 mg daily * Contact his clinical nurse manager or primary care provider to consider restarting amiodarone versus continue on Cardizem * Restart Eliquis 5 mg twice a day * Sliding-scale insulin and stopping oral meds while in the hospital * Follow strict I's and O's * Restart lisinopril at 20 mg (instead of the 40 mg he is on at home) for afterload reduction * He may need additional Lasix afternoon, but will need to check his pressures regularly to make sure his pressures are stable * Doxycycline 100 mg twice a day. * Patient is wheezy today so we will try him on Xopenex and continue on Atrovent when necessary * Full code * VTE prophylaxis with Eliquis * Ambulate in halls * Anticipate dc tomorrow
[2019-05-16] MEDS ORDERED: Metoprolol Tartrate 25 MG Tab PO ONE (10:30)
[2019-05-16] MEDS ORDERED: Levalbuterol HCl 1.25 MG/3 ML Neb NEB PRN (10:56)
[2019-05-16] MEDS ORDERED: Magnesium Hydroxide 400 MG/5 ML Susp 30 ML Cup PO ONE ×2 (11:30→17:44)
[2019-05-16] MEDS: Metoprolol Tartrate 25 MG Tab PO SCH (18:52)
[2019-05-16] MEDS: Temazepam 15 MG Cap PO PRN (20:43)
[2019-05-17 05:01] LABS: HEMOGLOBIN A1C 6.6 % (4.50-6.20)
[2019-05-17] MEDS ORDERED: Potassium Chloride 20 MEQ Tab.ER PO ONE (06:30)
[2019-05-17] MEDS: Furosemide 40 MG Tab PO SCH (06:53)
[2019-05-17] MEDS: Metoprolol Tartrate 25 MG Tab PO SCH (06:59)
[2019-05-17] MEDS: Metoprolol Tartrate 100 MG Tab PO SCH (06:59)
[2019-05-17] MEDS: Insulin Lispro 100 Units/ML 3 ML Vial SUBCUT SCH (07:46)
[2019-05-17] MEDS: Apixaban 5 MG Tab PO SCH (08:18)
[2019-05-17] MEDS: Amiodarone 200 MG Tab PO SCH (08:18)
[2019-05-17] MEDS: Doxycycline 100 MG Cap PO SCH (08:18)
--- NOTE | 2019-05-17 09:08 | PCM.DCSUM1 ---
Discharge Summary - Hospital Course HPI Initial Comments: 38-year-old male with history of atrial fibrillation presented to the emergency room last night with rapid ventricular response. Patient states that yesterday morning he started developing some shortness of breath, dyspnea on exertion, chest pain, and difficulty swallowing. Patient states he comes in and out of A. fib, but this time it would not resolve. He complained of right upper chest pain or pressure. He states he vomited after drinking water. Patient is on amiodarone, but had not taken it in 2 days secondary to traveling from [place], [place] through [facility] on his way to [place]. In the emergency room patient was given a bolus of Cardizem 10 mg IV and then placed on a Cardizem drip. Rate did get under control and the Cardizem drip was stopped and he was started on Cardizem IR 60 mg this morning. Patient's last dose of Eliquis was yesterday morning. Patient also states his lower extremities are more swollen than normal and he was given IV Lasix in the emergency room. Patient did have a positive d-dimer and a CT scan showed early pulmonary congestion consistent with early CHF. Also there was a 9 mm nodule in the right middle lobe. Recommendation was to get a noncontrast CT in 6 months. There was also some concern for atypical infection on CT. He was given Rocephin in the emergency room. Patient is currently resting comfortably with no chest pain, palpitations, or shortness of breath. He does complain still of some lower extremity edema. Brief History: Patient was converted over to his home Lopressor. Unfortunately the 100 mg twice a day was not enough to keep his rate controlled so we increased to 125 mg twice a day. Patient was given lisinopril and day to 20 mg daily, half of his home dose from his records, and he had relative hypotension with a systolic blood pressure and the low 90s. Her creatinine did bump up slightly to 1.8 from his admission 1.6. Lisinopril will be held for his return trip home. Diagnosis: Stroke: No - Discharge Data Discharge Date: 05/17/19 Discharge Disposition: Home, Self-Care 01 Condition: Good - Discharge Diagnosis/Problem(s) (1) Atrial fibrillation with RVR SNOMED Code(s): 713069537398922 ICD Code: I48.91 - UNSPECIFIED ATRIAL FIBRILLATION Status: Acute Current Visit: Yes (2) Peripheral edema SNOMED Code(s): 425081329 ICD Code: R60.9 - EDEMA, UNSPECIFIED Status: Acute Current Visit: Yes (3) Pulmonary nodules SNOMED Code(s): 225942425 ICD Code: R91.8 - OTHER NONSPECIFIC ABNORMAL FINDING OF LUNG FIELD Status: Acute Current Visit: Yes - Patient Instructions Diet: Heart Healthy Diet Fluid Restriction: 2000 mL Activity: As Tolerated Driving: May Drive Today Showering/Bathing: May Shower Other/Special Instructions: Follow up with cardiology and pcp next week. - Discharge Plan *PRESCRIPTION DRUG MONITORING PROGRAM REVIEWED*: Not Applicable *COPY OF PRESCRIPTION DRUG MONITORING REPORT IN PATIENT DENISE: Not Applicable Prescriptions/Med Rec: Doxycycline [Vibramycin] 100 mg PO Q12HR #10 cap Amiodarone HCl [Pacerone] 400 mg PO DAILY #30 tablet Apixaban [Eliquis] 5 mg PO BID #60 tablet Furosemide [Lasix] 40 mg PO BIDDIURETIC #60 tablet Metoprolol Tartrate [Lopressor] 100 mg PO Q12H #60 tablet Metoprolol Tartrate [Lopressor] 25 mg PO Q12H #60 tablet Home Medications: Home Meds Allopurinol [Zyloprim] 100 mg PO BID 05/17/19 [History] Amiodarone HCl [Pacerone] 400 mg PO DAILY #30 tablet 05/17/19 [Rx] Apixaban [Eliquis] 5 mg PO BID #60 tablet 05/17/19 [Rx] Doxycycline [Vibramycin] 100 mg PO Q12HR #10 cap 05/17/19 [Rx] Furosemide [Lasix] 40 mg PO BIDDIURETIC #60 tablet 05/17/19 [Rx] Metoprolol Tartrate [Lopressor] 25 mg PO Q12H #60 tablet 05/17/19 [Rx] Metoprolol Tartrate [Lopressor] 100 mg PO Q12H #60 tablet 05/17/19 [Rx] atorvaSTATin [Lipitor] 40 mg PO DAILY 05/17/19 [History] Oxygen Therapy Mode: Room Air Patient Handouts: Amiodarone tablets, Heart Failure, [id number], Apixaban oral tablets Forms: ED Department Discharge Referrals: Christopher Kwon [Other] - Discharge Summary/Plan Comment DC Time >30 min.: Yes Discharge Summary/Plan Comment: 38-year-old male with known history of atrial fibrillation was noncompliant with his medications came into the emergency room with RVR. Rate control was obtained with Cardizem drip and he was converted back to his home medicines minus lisinopril and with 25% more Lopressor. I spoke with patient's member service representative, Dr. Kwon, who would like him to come back for evaluation. Apparently patient was supposed to have an echocardiogram last year and never arranged it or had it done. Patient will be given his prescriptions to get home to [place] and follow-up with his primary care provider and cardiology. - General Info Date of Service: 05/17/19 Admission Dx/Problem (Free Text: Admission Diagnosis/Problem Admission Diagnosis/Problem Atrial fibrillation Subjective Update: May 16, 2019 Patient had difficult night last night. He complained of shortness of breath and lower chest discomfort. Patient was given Atrovent nebulizer, hydroxyzine, and Restoril which helps him rest. Patient's telemetry shows his pulse be consistently in the mid to upper 90s and lower 100s. Blood pressures overnight were also elevated. Spoke with his member service representative Dr. Bassem Kwon in [place], [place] recommended restarting his home meds. Dr. Kwon stated that he was supposed to follow-up for echocardiogram but did not. Myocardial perfusion scan did show ejection fraction of 25%, but Dr. Kwon believes that is artificially low and he will need an echo as an outpatient. Also, patient has severe sleep apnea and is supposed to be on BiPAP at home. Patient states he has not received a BiPAP. We have records of his most recent sleep study that was done September 10, 2018. Diagnosis obstructive sleep apnea. Recommendations: Recommend a trial of auto BiPAP EPAP min 15 cm water pressure, IPAP maximum 25, pressure support of 4 cm of water pressure. Patient was placed on BiPAP last night. May 17, 2019 Patient had uneventful night. He continues to improve no longer requiring oxygen. Patient's heart rate at rest is in the 80s and 90s. In the middle the night when he got up he did have one episode up to 130, that resolved with rest. Patient was asymptomatic with heart rate of 1:30. Patient also converted to sinus rhythm for a short time but has converted back to A. fib. Patient was given milk of magnesia 2 and prune juice yesterday. He did have several bouts of diarrhea which likely contributed to his mild decrease in potassium today. He will be replaced with oral potassium 20 mEq today. Functional Status: Reports: Pain Controlled - Review of Systems General: Reports: No Symptoms HEENT: Reports: No Symptoms Pulmonary: Reports: No Symptoms. Denies: Shortness of Breath, Cough Cardiovascular: Reports: No Symptoms. Denies: Chest Pain, Palpitations, Dyspnea on Exertion Gastrointestinal: Reports: No Symptoms. Denies: Abdominal Pain - Patient Data Vitals - Most Recent: Last Vital Signs Temp 97.9 F 05/17/19 08:03 Pulse 53 L 05/17/19 08:03 Resp 24 H 05/17/19 08:03 BP 95/79 05/17/19 08:03 Pulse Ox 91 L 05/17/19 08:48 Weight - Most Recent: 356 lb 9.6 oz I&O - Last 24 hours: Intake & Output 05/16/19 05/17/19 05/17/19 22:59 06:59 14:59 Intake Total 2116 858 Output Total 900 500 Balance 1216 358 Lab Results - Last 24 hrs: Laboratory Results - last 24 hr 05/16/19 05/16/19 05/16/19 Range/Units 11:24 16:25 20:37 WBC (4.23-9.07) K/mm3 RBC (4.63-6.08) M/mm3 Hgb (13.7-17.5) gm/L Hct (40.1-51.0) % MCV (79.0-92.2) fl MCH (25.7-32.2) pg MCHC (32.2-35.5) g/dl RDW Std Deviation (35.1-43.9) fL Plt Count (163-337) K/mm3 MPV (9.4-12.3) fl Neut % (Auto) (34.0-67.9) % Lymph % (Auto) (21.8-53.1) % Baker % (Auto) (5.3-12.2) % Eos % (Auto) (0.8-7.0) Baso % (Auto) (0.1-1.2) % Neut # (Auto) (1.78-5.38) K/mm3 Lymph # (Auto) (1.32-3.57) K/mm3 Baker # (Auto) (0.30-0.82) K/mm3 Eos # (Auto) (0.04-0.54) K/mm3 Baso # (Auto) (0.01-0.08) K/mm3 Sodium (136-145) mEq/L Potassium (3.5-5.1) mEq/L Chloride (98-107) mEq/L Carbon Dioxide (21-32) mEq/L Anion Gap (5-15) BUN (7-18) mg/dL Creatinine (0.7-1.3) mg/dL Est Cr Clr Drug Dosing mL/min Estimated GFR (MDRD) (>60) mL/min BUN/Creatinine Ratio (14-18) Glucose (74-106) mg/dL POC Glucose 108 H 113 H 128 H (70-105) mg/dL Hemoglobin A1c (4.50-6.20) % Calcium (8.5-10.1) mg/dL Magnesium (1.8-2.4) mg/dl Triglycerides (<150) mg/dL Cholesterol (<200) mg/dL LDL Cholesterol Direct (<100) mg/dL HDL Cholesterol (40-59) mg/dL 05/17/19 05/17/19 05/17/19 Range/Units 04:27 04:27 04:27 WBC 13.60 H (4.23-9.07) K/mm3 RBC 4.78 (4.63-6.08) M/mm3 Hgb 13.1 L (13.7-17.5) gm/L Hct 41.6 (40.1-51.0) % MCV 87.0 (79.0-92.2) fl MCH 27.4 (25.7-32.2) pg MCHC 31.5 L (32.2-35.5) g/dl RDW Std Deviation 43.0 (35.1-43.9) fL Plt Count 262 (163-337) K/mm3 MPV 11.4 (9.4-12.3) fl Neut % (Auto) 65.7 (34.0-67.9) % Lymph % (Auto) 25.5 (21.8-53.1) % Baker % (Auto) 6.8 (5.3-12.2) % Eos % (Auto) 1.5 (0.8-7.0) Baso % (Auto) 0.3 (0.1-1.2) % Neut # (Auto) 8.93 H (1.78-5.38) K/mm3 Lymph # (Auto) 3.47 (1.32-3.57) K/mm3 Baker # (Auto) 0.93 H (0.30-0.82) K/mm3 Eos # (Auto) 0.20 (0.04-0.54) K/mm3 Baso # (Auto) 0.04 (0.01-0.08) K/mm3 Sodium 140 (136-145) mEq/L Potassium 3.4 L (3.5-5.1) mEq/L Chloride 103 (98-107) mEq/L Carbon Dioxide 29 (21-32) mEq/L Anion Gap 11.4 (5-15) BUN 32 H (7-18) mg/dL Creatinine 1.8 H (0.7-1.3) mg/dL Est Cr Clr Drug Dosing 59.60 mL/min Estimated GFR (MDRD) 43 (>60) mL/min BUN/Creatinine Ratio 17.8 (14-18) Glucose 138 H (74-106) mg/dL POC Glucose (70-105) mg/dL Hemoglobin A1c 6.60 H (4.50-6.20) % Calcium 8.6 (8.5-10.1) mg/dL Magnesium 2.0 (1.8-2.4) mg/dl Triglycerides 91 (<150) mg/dL Cholesterol 157 (<200) mg/dL LDL Cholesterol Direct 108 H* (<100) mg/dL HDL Cholesterol 38.0 L (40-59) mg/dL 05/17/19 Range/Units 07:19 WBC (4.23-9.07) K/mm3 RBC (4.63-6.08) M/mm3 Hgb (13.7-17.5) gm/L Hct (40.1-51.0) % MCV (79.0-92.2) fl MCH (25.7-32.2) pg MCHC (32.2-35.5) g/dl RDW Std Deviation (35.1-43.9) fL Plt Count (163-337) K/mm3 MPV (9.4-12.3) fl Neut % (Auto) (34.0-67.9) % Lymph % (Auto) (21.8-53.1) % Baker % (Auto) (5.3-12.2) % Eos % (Auto) (0.8-7.0) Baso % (Auto) (0.1-1.2) % Neut # (Auto) (1.78-5.38) K/mm3 Lymph # (Auto) (1.32-3.57) K/mm3 Baker # (Auto) (0.30-0.82) K/mm3 Eos # (Auto) (0.04-0.54) K/mm3 Baso # (Auto) (0.01-0.08) K/mm3 Sodium (136-145) mEq/L Potassium (3.5-5.1) mEq/L Chloride (98-107) mEq/L Carbon Dioxide (21-32) mEq/L Anion Gap (5-15) BUN (7-18) mg/dL Creatinine (0.7-1.3) mg/dL Est Cr Clr Drug Dosing mL/min Estimated GFR (MDRD) (>60) mL/min BUN/Creatinine Ratio (14-18) Glucose (74-106) mg/dL POC Glucose 94 (70-105) mg/dL Hemoglobin A1c (4.50-6.20) % Calcium (8.5-10.1) mg/dL Magnesium (1.8-2.4) mg/dl Triglycerides (<150) mg/dL Cholesterol (<200) mg/dL LDL Cholesterol Direct (<100) mg/dL HDL Cholesterol (40-59) mg/dL [facility] Results - Last 24 hrs: Microbiology 05/15/19 00:35 Aerobic Blood Culture - Preliminary Blood - Venous - Lab Draw NO GROWTH AFTER 2 DAYS Anaerobic Blood Culture - Final 05/15/19 00:30 Aerobic Blood Culture - Preliminary Blood - Venous NO GROWTH AFTER 2 DAYS Anaerobic Blood Culture - Preliminary NO GROWTH AFTER 2 DAYS Med Orders - Current: Current Medications Amiodarone HCl (Cordarone) 400 mg PO DAILY [facility] Last Admin: 05/17/19 08:18 Dose: 400 mg Apixaban (Eliquis) 5 mg PO BID [facility] Last Admin: 05/17/19 08:18 Dose: 5 mg Doxycycline Hyclate (Vibramycin) 100 mg PO Q12HR [facility] Last Admin: 05/17/19 08:18 Dose: 100 mg Furosemide (Lasix) 40 mg PO BIDDIURETIC [facility] Last Admin: 05/17/19 06:53 Dose: 40 mg Insulin Human Lispro (Humalog) 0 unit SUBCUT QIDACANDBED [facility]; Protocol Last Admin: 05/17/19 07:46 Dose: Not Given Ipratropium Coolin (Atrovent) 0.5 mg NEB Q6H PRN PRN Reason: Shortness of Breath Last Admin: 05/15/19 21:26 Dose: 0.5 mg Levalbuterol HCl (Xopenex) 1.25 mg NEB Q4H PRN PRN Reason: Wheezing Last Admin: 05/16/19 11:09 Dose: 1.25 mg Metoprolol Tartrate (Lopressor) 100 mg PO Q12H [facility] Last Admin: 05/17/19 06:59 Dose: 100 mg Metoprolol Tartrate (Lopressor) 25 mg PO Q12H [facility] Last Admin: 05/17/19 06:59 Dose: 25 mg Sodium Chloride (Saline Flush) 10 ml FLUSH ASDIRECTED PRN PRN Reason: Keep Vein Open Last Admin: 05/14/19 21:45 Dose: 10 ml Temazepam (Restoril) 15 mg PO BEDTIME PRN PRN Reason: Sleep Last Admin: 05/16/19 20:43 Dose: 15 mg Discontinued Medications Diltiazem HCl (Cardizem) 10 mg IVPUSH ONETIME ONE Stop: 05/14/19 21:38 Last Admin: 05/14/19 21:45 Dose: 10 mg Diltiazem HCl (Cardizem) 60 mg PO ONETIME ONE Stop: 05/15/19 06:08 Last Admin: 05/15/19 06:18 Dose: 60 mg Diltiazem HCl (Cardizem) 60 mg PO Q6HR [facility] Last Admin: 05/15/19 12:43 Dose: 60 mg Doxycycline Hyclate (Vibramycin) 100 mg PO Q12HR [facility] Furosemide (Lasix) 80 mg IVPUSH NOW ONE Stop: 05/15/19 06:07 Last Admin: 05/15/19 06:18 Dose: 80 mg Hydroxyzine HCl (Atarax) 50 mg PO ONETIME ONE Stop: 05/15/19 21:31 Last Admin: 05/15/19 21:43 Dose: 50 mg Diltiazem HCl 125 mg/ Sodium (Chloride) 125 mls @ 10 mls/hr IV TITRATE GEORGE; Protocol Last Admin: 05/14/19 21:51 Dose: 10 mg/hr, 10 mls/hr Sodium Chloride (Normal Saline) 500 mls @ 500 mls/hr IV .BOLUS ONE Stop: 05/14/19 23:28 Last Admin: 05/14/19 22:45 Dose: 500 mls/hr Ceftriaxone Sodium 2 gm/ (Sodium Chloride) 100 mls @ 200 mls/hr IV ONETIME ONE Stop: 05/15/19 00:44 Last Admin: 05/15/19 00:20 Dose: 200 mls/hr Doxycycline Hyclate 100 mg/ (Sodium Chloride) 100 mls @ 100 mls/hr IV ONETIME ONE Stop: 05/15/19 10:29 Last Admin: 05/15/19 10:27 Dose: 100 mls/hr Ipratropium Coolin (Atrovent) 0.5 mg NEB Q6HRRT [facility] Last Admin: 05/15/19 21:47 Dose: Not Given Lisinopril (Prinivil) 20 mg PO DAILY [facility] Last Admin: 05/16/19 10:27 Dose: 20 mg Magnesium Hydroxide (Milk Of Magnesia) 30 ml PO ONETIME ONE Stop: 05/16/19 11:31 Last Admin: 05/16/19 11:25 Dose: 30 ml Magnesium Hydroxide (Milk Of Magnesia) 30 ml PO ONETIME ONE Stop: 05/16/19 17:45 Last Admin: 05/16/19 17:58 Dose: 30 ml Metoprolol Tartrate (Lopressor) 25 mg PO Q12H [facility] Last Admin: 05/16/19 10:26 Dose: 25 mg Metoprolol Tartrate (Lopressor) 25 mg PO ONETIME ONE Stop: 05/16/19 10:31 Last Admin: 05/16/19 10:28 Dose: Not Given Non-Formulary Medication (Amiodarone Hcl [Pacerone]) 400 mg PO DAILY [facility] Potassium Chloride (Klor-Con M20) 20 meq PO ONETIME ONE Stop: 05/17/19 06:31 Last Admin: 05/17/19 06:50 Dose: 20 meq - Exam General: Reports: Alert, Oriented HEENT: Reports: Pupils Equal, Pupils Reactive Neck: Reports: Supple Lungs: Reports: Clear to Auscultation, Normal Respiratory Effort Cardiovascular: Reports: Irregular Rhythm Extremities: Normal Inspection, Pedal Edema (Minimal pretibial edema) Skin: Reports: Warm, Dry, Intact Psy/Mental Status: Reports: Alert, Normal Affect, Normal Mood
[2019-05-17 19:32] VITALS: BP 108/83
== END 2019-05-17 10:41 | disposition home or self-care (01) ==
LOC: JD.ED 21:21 → INTOOBSV 05-15 06:52 → JD.MS 05-15 06:52
PROVIDERS: ADMIT Family Medicine; ATTEND Family Medicine
DX: I48.91 Unspecified atrial fibrillation (principal); R60.9 Edema, unspecified; R91.1 Solitary pulmonary nodule; G47.33 Obstructive sleep apnea (adult) (pediatric); Z91.14 Patient's other noncompliance with medication regimen; Z79.01 Long term (current) use of anticoagulants; Z79.899 Other long term (current) drug therapy
CPT/HCPCS: 36415; 71045; 71045-26; 71046; 71046-26; 71275; 71275-26; 80048; 80053; 80061; 82962; 83036; 83605; 83735; 83880; 84443; 84484; 85025; 85379; 87040; 93005; 93010; 93970; 93970-26; 94640; 94660; 94761; 96365; 96366; 96367; 96375; 96376; 99284; 99285-25; A9270-GY; G0378; J0696; J1940; J3490; J7030; J7040; J7612-GY

== ENCOUNTER 2019-05-17 17:27 | Inpatient (IN) | payer MEDICAID, OTHER ==
[2019-05-17] MEDS ORDERED: Sodium Chloride 0.9% 10 ML Syringe FLUSH PRN (17:41)
[2019-05-17] MEDS ORDERED: Albuterol/Ipratropium 3.0-0.5 MG/3 ML Neb Soln NEB ONE (17:42)
[2019-05-17] MEDS ORDERED: HYDROmorphone 0.5 MG/0.5 ML Syringe IVPUSH ONE (17:47)
--- NOTE | 2019-05-17 17:51 | EDM.PDOC ---
ED HPI GENERAL MEDICAL PROBLEM - General Chief Complaint: Respiratory Problem Stated Complaint: [facility] Time Seen by Provider: 05/17/19 17:35 Source of Information: Reports: Patient, EMS History Limitations: Reports: No Limitations - History of Present Illness INITIAL COMMENTS - FREE TEXT/NARRATIVE: The patient presents by [facility] for shortness of breath and chest pain. This started just prior to arrival. He just got released from the hospital today. He was admitted a couple days ago for atrial fibrillation with RVR, chest pain and shortness of breath. He was given a cardizem bolus and drip and switched to oral meds. He did better and he converted to a NSR. He was discharged today feeling good. He has swelling in his legs. He says he nearly passed out at the hotel. Onset: Sudden Duration: Minutes: Location: Reports: Chest, Abdomen Quality: Reports: Other (squeezing) Severity: Moderate Improves with: Reports: None Worsens with: Reports: None Associated Symptoms: Reports: Chest Pain. Denies: Cough, Fever/Chills, Nausea/ Vomiting Upper Abdomen Pain Score (Numeric/FACES): 8 - Related Data Allergies Allergy/AdvReac Type Severity Reaction Status Date / Time No Known Allergies Allergy Verified 05/17/19 17:41 Home Meds: Home Meds Allopurinol [Zyloprim] 100 mg PO BID 05/17/19 [History] Amiodarone HCl [Pacerone] 400 mg PO DAILY #30 tablet 05/17/19 [Rx] Apixaban [Eliquis] 5 mg PO BID #60 tablet 05/17/19 [Rx] Doxycycline [Vibramycin] 100 mg PO Q12HR #10 cap 05/17/19 [Rx] Furosemide [Lasix] 40 mg PO BIDDIURETIC #60 tablet 05/17/19 [Rx] Metoprolol Tartrate [Lopressor] 25 mg PO Q12H #60 tablet 05/17/19 [Rx] Metoprolol Tartrate [Lopressor] 100 mg PO Q12H #60 tablet 05/17/19 [Rx] atorvaSTATin [Lipitor] 40 mg PO DAILY 05/17/19 [History] Past Medical History Cardiovascular History: Reports: Afib, Hypertension Genitourinary History: Reports: Other (See Below) Other Genitourinary History: states he has "kidney issues", patient states doctor had told him one kidney was failing after a test showed he had alot of protein in urine...about a year ago Other Endocrine/Metabolic History: patient used to take glipizide...states the doctor took him off of it. - Past Surgical History Cardiovascular Surgical History: Reports: Cardiac Ablation Social & Family History - Family History Endocrine/Metabolic: Reports: Diabetes, Type I Other Endocrine/Metabolic Family History: father had diabetes and after infection of the bloodstream and amputation of the leg - Caffeine Use Caffeine Use: Reports: Energy Drinks, Soda, Tea ED ROS GENERAL - Review of Systems Review Of Systems: See Below Constitutional: Reports: No Symptoms HEENT: Reports: No Symptoms Respiratory: Reports: Shortness of Breath Cardiovascular: Reports: Chest Pain Endocrine: Reports: No Symptoms GI/Abdominal: Reports: No Symptoms : Reports: No Symptoms ED EXAM, GENERAL - Physical Exam Exam: See Below Exam Limited By: No Limitations General Appearance: Alert, No Apparent Distress Ears: Normal External Exam Nose: Normal Inspection Head: Atraumatic, Normocephalic Neck: Normal Inspection Respiratory/Chest: No Respiratory Distress, Decreased Breath Sounds, Wheezing Cardiovascular: Regular Rate, Rhythm, No Edema, No Murmur GI/Abdominal: Soft, No Organomegaly, No Mass, Tender (Mild to moderate tenderness to his bilateral lower chest to the upper abdomen) Extremities: Normal Inspection Neurological: Alert, Oriented, No Motor/Sensory Deficits EKG INTERPRETATION EKG Date: 05/17/19 Time: 17:32 Rhythm: NSR Rate (Beats/Min): 95 Shaw: Normal P-Wave: Present QRS: Normal ST-T: Normal QT: Normal EKG Interpretation Comments: PACs Course - Vital Signs Last Recorded V/S: Last Vital Signs Temp 97.1 F 05/17/19 17:38 Pulse 97 05/17/19 18:13 Resp 26 H 05/17/19 18:13 BP 97/84 05/17/19 18:13 Pulse Ox 86 L 05/17/19 18:13 - Orders/Labs/Meds Orders: Active Orders 24 hr Category Date Time Status Cardiac Monitoring [RC] . DIRECTED Care 05/17/19 17:41 Active EKG Documentation Completion [RC] STAT Care 05/17/19 17:42 Active Oxygen Therapy [RC] PRN Care 05/17/19 17:41 Active Peripheral IV Care [RC] . DIRECTED Care 05/17/19 17:42 Active RT Aerosol Therapy [RC] ASDIRECTED Care 05/17/19 17:42 Active Chest 1V Frontal [CR] Stat Exams 05/17/19 17:42 Taken Sodium Chloride 0.9% [Saline Flush] Med 05/17/19 17:41 Active 10 ml FLUSH ASDIRECTED PRN BiPAP [RESPCARE] Routine Oth 05/17/19 18:03 Active Peripheral IV Insertion Adult [OM.PC] Stat Oth 05/17/19 17:41 Ordered Medication Orders Sodium Chloride (Saline Flush) 10 ml FLUSH ASDIRECTED PRN PRN Reason: Keep Vein Open Last Admin: 05/17/19 17:50 Dose: 10 ml Labs: Laboratory Tests 05/17/19 05/17/19 05/17/19 Range/Units 17:40 17:40 17:40 WBC 15.46 H (4.23-9.07) K/mm3 RBC 5.24 (4.63-6.08) M/mm3 Hgb 14.5 (13.7-17.5) gm/L Hct 44.9 (40.1-51.0) % MCV 85.7 (79.0-92.2) fl MCH 27.7 (25.7-32.2) pg MCHC 32.3 (32.2-35.5) g/dl RDW Std Deviation 42.3 (35.1-43.9) fL Plt Count 315 (163-337) K/mm3 MPV 11.0 (9.4-12.3) fl Neut % (Auto) 70.1 H (34.0-67.9) % Lymph % (Auto) 20.8 L (21.8-53.1) % [place] % (Auto) 8.0 (5.3-12.2) % Eos % (Auto) 0.6 L (0.8-7.0) Baso % (Auto) 0.2 (0.1-1.2) % Neut # (Auto) 10.82 H (1.78-5.38) K/mm3 Lymph # (Auto) 3.22 (1.32-3.57) K/mm3 [place] # (Auto) 1.24 H (0.30-0.82) K/mm3 Eos # (Auto) 0.10 (0.04-0.54) K/mm3 Baso # (Auto) 0.03 (0.01-0.08) K/mm3 D-Dimer, Quantitative 0.95 H (0.19-0.50) mg/L Sodium 139 (136-145) mEq/L Potassium 4.5 (3.5-5.1) mEq/L Chloride 102 (98-107) mEq/L Carbon Dioxide 27 (21-32) mEq/L Anion Gap 14.5 (5-15) BUN 32 H (7-18) mg/dL Creatinine 1.7 H (0.7-1.3) mg/dL Est Cr Clr Drug Dosing TNP Estimated GFR (MDRD) 46 (>60) mL/min BUN/Creatinine Ratio 18.8 H (14-18) Glucose 113 H (74-106) mg/dL Calcium 9.1 (8.5-10.1) mg/dL Total Bilirubin 0.7 (0.2-1.0) mg/dL AST 38 H (15-37) U/L ALT 83 H (16-63) U/L Alkaline Phosphatase 62 (46-116) U/L Troponin I < 0.017 (0.00-0.056) ng/mL NT-Pro-B Natriuret Pep (0-125) pg/mL Total Protein 7.4 (6.4-8.2) g/dl Albumin 3.2 L (3.4-5.0) g/dl Globulin 4.2 gm/dL Albumin/Globulin Ratio 0.8 L (1-2) 05/17/19 Range/Units 17:40 WBC (4.23-9.07) K/mm3 RBC (4.63-6.08) M/mm3 Hgb (13.7-17.5) gm/L Hct (40.1-51.0) % MCV (79.0-92.2) fl MCH (25.7-32.2) pg MCHC (32.2-35.5) g/dl RDW Std Deviation (35.1-43.9) fL Plt Count (163-337) K/mm3 MPV (9.4-12.3) fl Neut % (Auto) (34.0-67.9) % Lymph % (Auto) (21.8-53.1) % [place] % (Auto) (5.3-12.2) % Eos % (Auto) (0.8-7.0) Baso % (Auto) (0.1-1.2) % Neut # (Auto) (1.78-5.38) K/mm3 Lymph # (Auto) (1.32-3.57) K/mm3 [place] # (Auto) (0.30-0.82) K/mm3 Eos # (Auto) (0.04-0.54) K/mm3 Baso # (Auto) (0.01-0.08) K/mm3 D-Dimer, Quantitative (0.19-0.50) mg/L Sodium (136-145) mEq/L Potassium (3.5-5.1) mEq/L Chloride (98-107) mEq/L Carbon Dioxide (21-32) mEq/L Anion Gap (5-15) BUN (7-18) mg/dL Creatinine (0.7-1.3) mg/dL Est Cr Clr Drug Dosing Estimated GFR (MDRD) (>60) mL/min BUN/Creatinine Ratio (14-18) Glucose (74-106) mg/dL Calcium (8.5-10.1) mg/dL Total Bilirubin (0.2-1.0) mg/dL AST (15-37) U/L ALT (16-63) U/L Alkaline Phosphatase (46-116) U/L Troponin I (0.00-0.056) ng/mL NT-Pro-B Natriuret Pep 1451 H (0-125) pg/mL Total Protein (6.4-8.2) g/dl Albumin (3.4-5.0) g/dl Globulin gm/dL Albumin/Globulin Ratio (1-2) Meds: Medications Generic Name Dose Route Start Last Admin Trade Name Freq PRN Reason Stop Dose Admin Sodium Chloride 10 ml 05/17/19 17:41 05/17/19 17:50 Saline Flush FLUSH 10 ml ASDIRECTED PRN Administration Keep Vein Open Discontinued Medications Generic Name Dose Route Start Last Admin Trade Name Freq PRN Reason Stop Dose Admin Albuterol/Ipratropium 3 ml 05/17/19 17:42 05/17/19 17:49 Duoneb 3.0-0.5 Mg/3 Ml NEB 05/17/19 17:43 3 ml ONETIME ONE Administration Furosemide 80 mg 05/17/19 18:05 05/17/19 18:23 Lasix IVPUSH 05/17/19 18:06 80 mg NOW ONE Administration Hydromorphone HCl 0.5 mg 05/17/19 17:47 05/17/19 17:55 Dilaudid IVPUSH 05/17/19 17:48 0.5 mg ONETIME ONE Administration - Re-Assessments/Exams Free Text/Narrative Re-Assessment/Exam: 05/17/19 17:54 I ordered an IV saline lock, EKG, CXR, labs, duoneb and dilaudid 0.5mg IV. 05/17/19 18:38 His CXR shows a big difference from a few days ago. It appears he is in CHF. His EKG shows a NSR with PACs with no acute changes. His WBC is elevated at 15.46. His D-dimer is elevated at 0.95 but better from a couple days ago. His creatinine is elevated at 1.7. His creatinine earlier today was 1.8. His glucose was elevated at 113. His AST is elevated at 38. His ALT is elevated at 83. His troponin is negative. His BNP is elevated at 1451 and that has gone up from a couple days ago at 677. His oxygen saturations were in the high 80s on 4L. I ordered some BiPAP and he is doing better. I also gave him lasix 80mg IV and he is urinating already. 05/17/19 19:18 I feel he needs to be admitted. I called Dr Turcios and he agreed to the admission. Departure - Departure Time of Disposition: 19:30 Disposition: Admitted As Inpatient 67 Condition: Poor Clinical Impression: CHF (congestive heart failure) Qualifiers: Heart failure type: unspecified Heart failure chronicity: unspecified Qualified Code(s): I50.9 - Heart failure, unspecified Pulmonary edema Qualifiers: Chronicity: acute Qualified Code(s): J81.0 - Acute pulmonary edema - Discharge Information Referrals: PCP,None [Primary Care Provider] - Forms: ED Department Discharge - My Orders Last 24 Hours: My Active Orders 05/17/19 17:41 Cardiac Monitoring [RC] . DIRECTED Oxygen Therapy [RC] PRN Sodium Chloride 0.9% [Saline Flush] 10 ml FLUSH ASDIRECTED PRN Peripheral IV Insertion Adult [OM.PC] Stat 05/17/19 17:42 EKG Documentation Completion [RC] STAT Peripheral IV Care [RC] . DIRECTED RT Aerosol Therapy [RC] ASDIRECTED Chest 1V Frontal [CR] Stat 05/17/19 18:03 BiPAP [RESPCARE] Routine - Assessment/Plan Last 24 Hours: My Active Orders 05/17/19 17:41 Cardiac Monitoring [RC] . DIRECTED Oxygen Therapy [RC] PRN Sodium Chloride 0.9% [Saline Flush] 10 ml FLUSH ASDIRECTED PRN Peripheral IV Insertion Adult [OM.PC] Stat 05/17/19 17:42 EKG Documentation Completion [RC] STAT Peripheral IV Care [RC] . DIRECTED RT Aerosol Therapy [RC] ASDIRECTED Chest 1V Frontal [CR] Stat 05/17/19 18:03 BiPAP [RESPCARE] Routine
[2019-05-17] MEDS ORDERED: Furosemide 40 MG/4 ML VIAL IVPUSH ONE (18:05)
[2019-05-17] MEDS ORDERED: Temazepam 15 MG Cap PO PRN (21:47)
[2019-05-17] MEDS ORDERED: Ondansetron 4 MG/2 ML SDV IV PRN (21:47)
[2019-05-17] MEDS ORDERED: Acetaminophen 325 MG Tab PO PRN (21:47)
[2019-05-17] MEDS ORDERED: Ondansetron 4 MG Tab.DIS PO PRN (21:47)
--- NOTE | 2019-05-17 22:01 | PCM.HP ---
H&P History of Present Illness - General Date of Service: 05/17/19 Admit Problem/Dx: Admission Diagnosis/Problem Admission Diagnosis/Problem CHF, Congestive heart failure - History of Present Illness Initial Comments - Free Text/Narative: 38-year-old male who was discharged this morning after being admitted for it or fibrillation with RVR [facility] with acute onset shortness of breath. Patient is traveling from [place], [place] to [place] via [employer] when 2 days ago he stopped in [place] secondary to shortness of breath. Patient was admitted and rate was controlled on a Cardizem drip and he was converted over to Lopressor. Patient had forgotten his medications at home. This morning when patient was released he was doing well without any shortness of breath and his rate was controlled. Emergency room patient was given 80 mg of Lasix IV and he has a good diuresis. He was placed on BiPAP in the emergency room because of work of breathing. Patient now is resting comfortably, able to talk with his BiPAP on, and doing much better. Patient is prescribed BiPAP at home for sleep apnea, but has been unable to get the machine due to insurance reasons since July. Patient also had a myocardial perfusion scan done in July 2018 showing ejection fraction of 25 %. According to his truck bracer, Dr. Kwon, this is likely falsely low. Patient was due for an echo but never had it done. Patient did have cardiac ablation in the past. CT angios was performed in the emergency room on the first visit on April 15, 2019 which showed possible atypical infection versus CHF. Upper Abdomen Pain Score (Numeric/FACES): 8 - Related Data Allergies/Adverse Reactions: Allergies Allergy/AdvReac Type Severity Reaction Status Date / Time No Known Allergies Allergy Verified 05/17/19 17:41 Home Medications: Home Meds Allopurinol [Zyloprim] 100 mg PO BID 05/17/19 [History] Amiodarone HCl [Pacerone] 400 mg PO DAILY #30 tablet 05/17/19 [Rx] Apixaban [Eliquis] 5 mg PO BID #60 tablet 05/17/19 [Rx] Doxycycline [Vibramycin] 100 mg PO Q12HR #10 cap 05/17/19 [Rx] Furosemide [Lasix] 40 mg PO BIDDIURETIC #60 tablet 05/17/19 [Rx] Metoprolol Tartrate [Lopressor] 25 mg PO Q12H #60 tablet 05/17/19 [Rx] Metoprolol Tartrate [Lopressor] 100 mg PO Q12H #60 tablet 05/17/19 [Rx] atorvaSTATin [Lipitor] 40 mg PO DAILY 05/17/19 [History] Past Medical History HEENT History: Reports: None Cardiovascular History: Reports: Afib, Hypertension Respiratory History: Reports: None Gastrointestinal History: Reports: None Genitourinary History: Reports: Other (See Below) Other Genitourinary History: states he has "kidney issues", patient states doctor had told him one kidney was failing after a test showed he had alot of protein in urine...about a year ago Musculoskeletal History: Reports: None Neurological History: Reports: None Psychiatric History: Reports: None Endocrine/Metabolic History: Reports: Diabetes, Type II, Obesity/BMI 30+ Other Endocrine/Metabolic History: patient used to take glipizide...states the doctor took him off of it. Hematologic History: Reports: None Immunologic History: Reports: None Oncologic (Cancer) History: Reports: None Dermatologic History: Reports: None - Infectious Disease History Infectious Disease History: Reports: None - Past Surgical History Head Surgeries/Procedures: Reports: None HEENT Surgical History: Reports: None Cardiovascular Surgical History: Reports: Cardiac Ablation GI Surgical History: Reports: None Musculoskeletal Surgical History: Reports: None Social & Family History - Family History HEENT: Reports: None Cardiac: Reports: High Cholesterol, Hypertension Respiratory: Reports: None GI: Reports: Hiatal Hernia : Reports: Renal Disease/Insufficiency Musculoskeletal: Reports: None Neurological: Reports: None Psychiatric: Reports: Anxiety Endocrine/Metabolic: Reports: Diabetes, Type I Other Endocrine/Metabolic Family History: father had diabetes and after infection of the bloodstream and amputation of the leg Hematologic: Reports: None Immunologic: Reports: None Oncologic: Reports: None - Tobacco Use Smoking Status *Q: Never Smoker Second Hand Smoke Exposure: No - Caffeine Use Caffeine Use: Reports: Coffee, Energy Drinks, Soda, Tea - Recreational Drug Use Recreational Drug Use: No H&P Review of Systems - Review of Systems: Review Of Systems: ROS reveals no pertinent complaints other than HPI. Exam - Exam Exam: See Below - Vital Signs Vital Signs: Last Vital Signs Temp 97.1 F 05/17/19 17:38 Pulse 90 05/17/19 19:32 Resp 26 H 05/17/19 18:13 BP 97/79 05/17/19 19:32 Pulse Ox 100 05/17/19 19:32 Weight: 356 lb 1.6 oz - Exam Quality Assessment: Supplemental Oxygen General: Alert, Oriented HEENT: Conjunctiva Clear, Hearing Intact, Mucosa Moist & [address], Posterior Pharynx Clear Neck: Supple, Trachea Midline Lungs: Clear to Auscultation, Normal Respiratory Effort Cardiovascular: Regular Rate, Regular Rhythm GI/Abdominal Exam: Normal Bowel Sounds, Soft, Non-Tender, No Organomegaly, No Distention Extremities: Pedal Edema (3+ pitting edema bilaterally up to his knees) Skin: Warm, Dry, Intact Neuro Extensive - Mental Status: Alert, Oriented x3 - Patient Data Lab Results Last 24 hrs: Laboratory Results - last 24 hr 05/17/19 05/17/19 05/17/19 Range/Units 17:40 17:40 17:40 WBC 15.46 H (4.23-9.07) K/mm3 RBC 5.24 (4.63-6.08) M/mm3 Hgb 14.5 (13.7-17.5) gm/L Hct 44.9 (40.1-51.0) % MCV 85.7 (79.0-92.2) fl MCH 27.7 (25.7-32.2) pg MCHC 32.3 (32.2-35.5) g/dl RDW Std Deviation 42.3 (35.1-43.9) fL Plt Count 315 (163-337) K/mm3 MPV 11.0 (9.4-12.3) fl Neut % (Auto) 70.1 H (34.0-67.9) % Lymph % (Auto) 20.8 L (21.8-53.1) % [place] % (Auto) 8.0 (5.3-12.2) % Eos % (Auto) 0.6 L (0.8-7.0) Baso % (Auto) 0.2 (0.1-1.2) % Neut # (Auto) 10.82 H (1.78-5.38) K/mm3 Lymph # (Auto) 3.22 (1.32-3.57) K/mm3 [place] # (Auto) 1.24 H (0.30-0.82) K/mm3 Eos # (Auto) 0.10 (0.04-0.54) K/mm3 Baso # (Auto) 0.03 (0.01-0.08) K/mm3 D-Dimer, Quantitative 0.95 H (0.19-0.50) mg/L Sodium 139 (136-145) mEq/L Potassium 4.5 (3.5-5.1) mEq/L Chloride 102 (98-107) mEq/L Carbon Dioxide 27 (21-32) mEq/L Anion Gap 14.5 (5-15) BUN 32 H (7-18) mg/dL Creatinine 1.7 H (0.7-1.3) mg/dL Est Cr Clr Drug Dosing TNP Estimated GFR (MDRD) 46 (>60) mL/min BUN/Creatinine Ratio 18.8 H (14-18) Glucose 113 H (74-106) mg/dL Calcium 9.1 (8.5-10.1) mg/dL Total Bilirubin 0.7 (0.2-1.0) mg/dL AST 38 H (15-37) U/L ALT 83 H (16-63) U/L Alkaline Phosphatase 62 (46-116) U/L Troponin I < 0.017 (0.00-0.056) ng/mL NT-Pro-B Natriuret Pep (0-125) pg/mL Total Protein 7.4 (6.4-8.2) g/dl Albumin 3.2 L (3.4-5.0) g/dl Globulin 4.2 gm/dL Albumin/Globulin Ratio 0.8 L (1-2) 05/17/19 Range/Units 17:40 WBC (4.23-9.07) K/mm3 RBC (4.63-6.08) M/mm3 Hgb (13.7-17.5) gm/L Hct (40.1-51.0) % MCV (79.0-92.2) fl MCH (25.7-32.2) pg MCHC (32.2-35.5) g/dl RDW Std Deviation (35.1-43.9) fL Plt Count (163-337) K/mm3 MPV (9.4-12.3) fl Neut % (Auto) (34.0-67.9) % Lymph % (Auto) (21.8-53.1) % [place] % (Auto) (5.3-12.2) % Eos % (Auto) (0.8-7.0) Baso % (Auto) (0.1-1.2) % Neut # (Auto) (1.78-5.38) K/mm3 Lymph # (Auto) (1.32-3.57) K/mm3 [place] # (Auto) (0.30-0.82) K/mm3 Eos # (Auto) (0.04-0.54) K/mm3 Baso # (Auto) (0.01-0.08) K/mm3 D-Dimer, Quantitative (0.19-0.50) mg/L Sodium (136-145) mEq/L Potassium (3.5-5.1) mEq/L Chloride (98-107) mEq/L Carbon Dioxide (21-32) mEq/L Anion Gap (5-15) BUN (7-18) mg/dL Creatinine (0.7-1.3) mg/dL Est Cr Clr Drug Dosing Estimated GFR (MDRD) (>60) mL/min BUN/Creatinine Ratio (14-18) Glucose (74-106) mg/dL Calcium (8.5-10.1) mg/dL Total Bilirubin (0.2-1.0) mg/dL AST (15-37) U/L ALT (16-63) U/L Alkaline Phosphatase (46-116) U/L Troponin I (0.00-0.056) ng/mL NT-Pro-B Natriuret Pep 1451 H (0-125) pg/mL Total Protein (6.4-8.2) g/dl Albumin (3.4-5.0) g/dl Globulin gm/dL Albumin/Globulin Ratio (1-2) Result Diagrams: 05/17/19 17:40 05/17/19 17:40 Imaging Impressions Last 24 hrs: chest x-ray: diffuse increased pulmonary congestion consistent with heart failure - Problem List (1) Paroxysmal atrial fibrillation SNOMED Code(s): 147491520 ICD Code: I48.0 - PAROXYSMAL ATRIAL FIBRILLATION Status: Acute Current Visit: Yes (2) CHF (congestive heart failure) SNOMED Code(s): 46209492 ICD Code: I50.9 - HEART FAILURE, UNSPECIFIED Status: Acute Current Visit : Yes Qualifiers: Heart failure type: unspecified Heart failure chronicity: unspecified Qualified Code(s): I50.9 - Heart failure, unspecified (3) Pulmonary edema SNOMED Code(s): 15392686 ICD Code: J81.1 - CHRONIC PULMONARY EDEMA Status: Acute Current Visit: Yes Qualifiers: Chronicity: acute Qualified Code(s): J81.0 - Acute pulmonary edema (4) Pulmonary nodules SNOMED Code(s): 201180033 ICD Code: R91.8 - OTHER NONSPECIFIC ABNORMAL FINDING OF LUNG FIELD Status: Acute Current Visit: No Problem List Initiated/Reviewed/Updated: Yes Orders Last 24hrs: Active Orders 24 hr Category Date Time Status Patient Status [ADT] Routine ADT 05/17/19 19:25 Active Cardiac Monitoring [RC] . DIRECTED Care 05/17/19 17:41 Active EKG Documentation Completion [RC] STAT Care 05/17/19 17:42 Active Intake and Output Strict [RC] ASDIRECTED Care 05/17/19 21:51 Ordered Oxygen Therapy [RC] PRN Care 05/17/19 17:41 Active Oxygen Therapy [RC] PRN Care 05/17/19 21:47 Ordered Peripheral IV Care [RC] . DIRECTED Care 05/17/19 17:42 Active RT Aerosol Therapy [RC] ASDIRECTED Care 05/17/19 17:42 Active Up ad Aminata [RC] ASDIRECTED Care 05/17/19 21:47 Ordered VTE/DVT Education [RC] PER UNIT ROUTINE Care 05/17/19 21:47 Ordered Vital Signs [RC] Q4H Care 05/17/19 21:47 Ordered ADA Diabetic [[employer] Diet] [DIET Diet 05/18/19 Dinner Active ] Fluid Restriction [DIET] Diet 05/17/19 Dinner Ordered Chest 1V Frontal [CR] Stat Exams 05/17/19 17:42 Taken BLOOD GAS ARTERIAL [BG] Routine Lab 05/18/19 06:00 Ordered CBC WITH AUTO DIFF [HEME] AM Lab 05/18/19 05:11 Ordered COMPREHENSIVE METABOLIC PN,CMP [CHEM] AM Lab 05/18/19 05:11 Ordered PRO B-TYPE NATRIUR PEPT,BNPPRO [CHEM] Routine Lab 05/18/19 05:10 Ordered TROPONIN I [CHEM] AM Lab 05/18/19 05:11 Ordered Acetaminophen [Tylenol] Med 05/17/19 21:47 Ordered 650 mg PO Q4H PRN Amiodarone HCl [Pacerone] Med 05/18/19 09:00 Ordered 400 mg PO DAILY Apixaban [Eliquis] Med 05/17/19 22:00 Ordered 5 mg PO BID Doxycycline [Vibramycin] Med 05/18/19 09:00 Ordered 100 mg PO Q12HR Metoprolol Tartrate [Lopressor] Med 05/17/19 22:00 Ordered 100 mg PO Q12H Metoprolol Tartrate [Lopressor] Med 05/17/19 22:00 Ordered 25 mg PO Q12H Ondansetron [Zofran ODT] Med 05/17/19 21:47 Ordered 4 mg PO Q4H PRN Ondansetron [Zofran] Med 05/17/19 21:47 Ordered 4 mg IV Q4H PRN Sodium Chloride 0.9% [Saline Flush] Med 05/17/19 17:41 Active 10 ml FLUSH ASDIRECTED PRN Temazepam [Restoril] Med 05/17/19 21:47 Ordered 15 mg PO BEDTIME PRN atorvaSTATin Med 05/18/19 09:00 Ordered 40 mg PO DAILY BiPAP [RESPCARE] Routine Oth 05/17/19 18:03 Active Peripheral IV Insertion Adult [OM.PC] Stat Oth 05/17/19 17:41 Ordered Code Status [Resuscitation Status] Routine Resus Stat 05/17/19 21:44 Ordered Medication Orders Acetaminophen (Tylenol) 650 mg PO Q4H PRN PRN Reason: Pain (Mild 1-3)/fever Apixaban (Eliquis) 5 mg PO BID GEORGE Doxycycline Hyclate (Vibramycin) 100 mg PO Q12HR GEORGE Metoprolol Tartrate (Lopressor) 25 mg PO Q12H GEORGE Metoprolol Tartrate (Lopressor) 100 mg PO Q12H GEORGE Non-Formulary Medication (Amiodarone Hcl [Pacerone]) 400 mg PO DAILY GEORGE Non-Formulary Medication (Atorvastatin) 40 mg PO DAILY GEORGE Ondansetron HCl (Zofran Odt) 4 mg PO Q4H PRN PRN Reason: nausea, able to take PO Ondansetron HCl (Zofran) 4 mg IV Q4H PRN PRN Reason: Nausea/Vomiting Sodium Chloride (Saline Flush) 10 ml FLUSH ASDIRECTED PRN PRN Reason: Keep Vein Open Last Admin: 05/17/19 17:50 Dose: 10 ml Temazepam (Restoril) 15 mg PO BEDTIME PRN PRN Reason: Sleep Assessment/Plan Comment:: Assessment * 38-year-old with known A. fib converted back to sinus rhythm returns to the hospital with acute pulmonary edema requiring BiPAP * Patient was unable to manager technical support all of his medications prescribed at the local pharmacy for unknown reason * Lasix 80 mg IV given in the emergency room * Severe sleep apnea * History of diabetes with a hemoglobin A1c of 6.6 Plan * Continue BiPAP overnight * He will likely need another bolus of Lasix in the morning but will evaluate at that time * Strict I's and O's and daily weights * CBC, CMP, pro-BMP, magnesium morning * ABG in the morning * On Eliquis for A. fib and DVT prophylaxis * Prognosis is poor * CODE STATUS: Full code * Length of stay anticipated to be 2-3 days
[2019-05-17] MEDS: Metoprolol Tartrate 25 MG Tab PO SCH (22:44)
[2019-05-17] MEDS: Apixaban 5 MG Tab PO SCH (22:44)
[2019-05-17] MEDS: Metoprolol Tartrate 100 MG Tab PO SCH (22:44)
[2019-05-18] MEDS ORDERED: Doxycycline 100 MG Cap PO ONE (00:30)
[2019-05-18] MEDS: Apixaban 5 MG Tab PO SCH (08:07)
[2019-05-18] MEDS ORDERED: Rosuvastatin 10 MG Tab PO SCH (09:00)
[2019-05-18] MEDS ORDERED: Amiodarone 200 MG Tab PO SCH (09:00)
[2019-05-18] MEDS ORDERED: Doxycycline 100 MG Cap PO SCH (09:00)
--- NOTE | 2019-05-18 09:00 | CR ---
Chest: Portable view of the chest was obtained. Comparison: Prior chest x-ray of 05/16/19. Heart is enlarged. Pulmonary vessels are diffusely increased. No acute parenchymal change is otherwise seen. Bony structures are grossly intact. Impression: 1. Cardiomegaly and stable pulmonary vascular congestion from previous study. Diagnostic code #3
[2019-05-18] MEDS ORDERED: Furosemide 40 MG/4 ML VIAL IVPUSH ONE (09:37)
[2019-05-18] MEDS ORDERED: Spironolactone 25 MG Tab PO SCH (09:45)
[2019-05-18] MEDS: Metoprolol Tartrate 100 MG Tab PO SCH (10:03)
[2019-05-18] MEDS: Metoprolol Tartrate 25 MG Tab PO SCH (10:03)
--- NOTE | 2019-05-18 11:13 | PCM.DCSUM1 ---
Discharge Summary - Hospital Course Free Text/Narrative:: see dictation HPI Initial Comments: see admit and previous admit note Diagnosis: Stroke: No Modified [place] Scale: Mod.Sev.Disability ;Unable to Walk/Attend Bodily Needs W/ O Assistance Modified [place] Scale Score: 4 - Discharge Data Discharge Date: 05/18/19 Discharge Disposition: DC/Tfer to Acute Hospital 02 Preliminary Cause of *Q: Respiratory Failure Condition: Serious - Discharge Diagnosis/Problem(s) (1) Chronic renal insufficiency, stage III (moderate) SNOMED Code(s): 318449408 ICD Code: N18.3 - CHRONIC KIDNEY DISEASE, STAGE 3 (MODERATE) Status: Acute Priority: High Current Visit: Yes Onset Date: 05/18/19 (2) Proteinuria of undiagnosed cause SNOMED Code(s): 041072364 ICD Code: R80.9 - PROTEINURIA, UNSPECIFIED Status: Acute Priority: Low Current Visit: Yes Onset Date: 05/18/19 (3) Morbid obesity with BMI of 40.0-44.9, adult SNOMED Code(s): 189445901, 35204601183956 ICD Code: E66.01 - MORBID (SEVERE) OBESITY DUE TO EXCESS CALORIES; Z68.41 - BODY MASS INDEX (BMI) 40.0-44.9, ADULT Status: Acute Priority: High Current Visit: Yes Onset Date: 05/18/19 (4) Sleep apnea treated with nocturnal BiPAP SNOMED Code(s): 99208420 ICD Code: G47.30 - SLEEP APNEA, UNSPECIFIED Status: Acute Priority: High Current Visit: Yes Onset Date: 05/18/19 Problem Details: unknown severity sleep study recommended cpap and patient has never used (5) Acute and chronic respiratory failure with hypoxia SNOMED Code(s): 67217664, 498915176 ICD Code: J96.21 - ACUTE AND CHRONIC RESPIRATORY FAILURE WITH HYPOXIA Status: Acute Priority: High Current Visit: Yes Onset Date: 05/14/19 (6) Cardiomyopathy SNOMED Code(s): 93671934 ICD Code: I42.9 - CARDIOMYOPATHY, UNSPECIFIED Status: Acute Current Visit : Yes Qualifiers: Cardiomyopathy type: unspecified Qualified Code(s): I42.9 - Cardiomyopathy , unspecified (7) CHF (congestive heart failure) SNOMED Code(s): 39004181 ICD Code: I50.9 - HEART FAILURE, UNSPECIFIED Status: Acute Priority: High Current Visit: Yes Onset Date: 05/14/19 Qualifiers: Heart failure type: combined systolic and diastolic Heart failure chronicity: acute on chronic Qualified Code(s): I50.43 - Acute on chronic combined systolic (congestive) and diastolic (congestive) heart failure - Patient Summary/Data Operative Procedure(s) Performed: previous records pending Complications: syncope in shower 05/17/19 Consults: transfer to [facility] for cardiology and pulm and renal consultation - Patient Instructions Diet: Low Sodium Diet, Other: qual ada Fluid Restriction: 1500 mL Activity: Bedrest, May Use Bathroom Other/Special Instructions: cont current orders and bipap with transfer - Discharge Plan *PRESCRIPTION DRUG MONITORING PROGRAM REVIEWED*: Not Applicable *COPY OF PRESCRIPTION DRUG MONITORING REPORT IN PATIENT DENISE: Not Applicable Home Medications: Home Meds Allopurinol [Zyloprim] 100 mg PO BID 05/17/19 [History] Amiodarone HCl [Pacerone] 400 mg PO DAILY #30 tablet 05/17/19 [Rx] Apixaban [Eliquis] 5 mg PO BID #60 tablet 05/17/19 [Rx] Doxycycline [Vibramycin] 100 mg PO Q12HR #10 cap 05/17/19 [Rx] Furosemide [Lasix] 40 mg PO BIDDIURETIC #60 tablet 05/17/19 [Rx] Metoprolol Tartrate [Lopressor] 25 mg PO Q12H #60 tablet 05/17/19 [Rx] Metoprolol Tartrate [Lopressor] 100 mg PO Q12H #60 tablet 05/17/19 [Rx] atorvaSTATin [Lipitor] 40 mg PO DAILY 05/17/19 [History] Oxygen Therapy Mode: BiPAP Oxygen Flow Rate (L/min): 2 Forms: ED Department Discharge Referrals: PCP,None [Primary Care Provider] - - Discharge Summary/Plan Comment DC Time >30 min.: Yes Discharge Summary/Plan Comment: dictated / discussed case with DR. Alonso Ospina . transfer appropriate - General Info Date of Service: 05/18/19 Admission Dx/Problem (Free Text: Admission Diagnosis/Problem Admission Diagnosis/Problem CHF, Congestive heart failure afib rvr converted to sinus renal insuff resp failure ramírez morbid obesity cardiomyopathy veinous insuff without dvt syncope Functional Status: Reports: Pain Controlled - Review of Systems General: Reports: No Symptoms HEENT: Reports: No Symptoms Pulmonary: Reports: No Symptoms, Shortness of Breath Cardiovascular: Reports: No Symptoms, Dyspnea on Exertion, Lightheadedness, Other Gastrointestinal: Reports: No Symptoms Genitourinary: Reports: No Symptoms Musculoskeletal: Reports: No Symptoms Skin: Reports: No Symptoms Neurological: Reports: No Symptoms Psychiatric: Reports: No Symptoms - Patient Data Vitals - Most Recent: Last Vital Signs Temp 36.4 C 05/18/19 00:38 Pulse 82 05/18/19 10:03 Resp 28 H 05/18/19 07:46 BP 106/66 05/18/19 10:03 Pulse Ox 99 05/18/19 07:46 Weight - Most Recent: 162.023 kg I&O - Last 24 hours: Intake & Output 05/17/19 05/18/19 05/18/19 22:59 06:59 14:59 Intake Total 300 215 250 Output Total 3600 1300 Balance -3300 215 -1050 Lab Results - Last 24 hrs: Laboratory Results - last 24 hr 05/17/19 05/17/19 05/17/19 Range/Units 17:40 17:40 17:40 WBC 15.46 H (4.23-9.07) K/mm3 RBC 5.24 (4.63-6.08) M/mm3 Hgb 14.5 (13.7-17.5) gm/L Hct 44.9 (40.1-51.0) % MCV 85.7 (79.0-92.2) fl MCH 27.7 (25.7-32.2) pg MCHC 32.3 (32.2-35.5) g/dl RDW Std Deviation 42.3 (35.1-43.9) fL Plt Count 315 (163-337) K/mm3 MPV 11.0 (9.4-12.3) fl Neut % (Auto) 70.1 H (34.0-67.9) % Lymph % (Auto) 20.8 L (21.8-53.1) % [place] % (Auto) 8.0 (5.3-12.2) % Eos % (Auto) 0.6 L (0.8-7.0) Baso % (Auto) 0.2 (0.1-1.2) % Neut # (Auto) 10.82 H (1.78-5.38) K/mm3 Lymph # (Auto) 3.22 (1.32-3.57) K/mm3 [place] # (Auto) 1.24 H (0.30-0.82) K/mm3 Eos # (Auto) 0.10 (0.04-0.54) K/mm3 Baso # (Auto) 0.03 (0.01-0.08) K/mm3 D-Dimer, Quantitative 0.95 H (0.19-0.50) mg/L Puncture Site ABG pH (7.35-7.45) ABG pCO2 (35.0-45.0) mmHg ABG pO2 (80.0-100.0) mmHg ABG HCO3 (22.0-26.0) meq/L ABG O2 Saturation (96.0-97.0) % ABG Base Excess (-2-2.0) Leon Test A-a Gradient mmHg O2 Delivery Device FiO2 (21.00-100.00) % PEEP cmH20 Pressure Support cmH2O Sodium 139 (136-145) mEq/L Potassium 4.5 (3.5-5.1) mEq/L Chloride 102 (98-107) mEq/L Carbon Dioxide 27 (21-32) mEq/L Anion Gap 14.5 (5-15) BUN 32 H (7-18) mg/dL Creatinine 1.7 H (0.7-1.3) mg/dL Est Cr Clr Drug Dosing TNP Estimated GFR (MDRD) 46 (>60) mL/min BUN/Creatinine Ratio 18.8 H (14-18) Glucose 113 H (74-106) mg/dL POC Glucose (70-105) mg/dL Calcium 9.1 (8.5-10.1) mg/dL Total Bilirubin 0.7 (0.2-1.0) mg/dL AST 38 H (15-37) U/L ALT 83 H (16-63) U/L Alkaline Phosphatase 62 (46-116) U/L Troponin I < 0.017 (0.00-0.056) ng/mL NT-Pro-B Natriuret Pep (0-125) pg/mL Total Protein 7.4 (6.4-8.2) g/dl Albumin 3.2 L (3.4-5.0) g/dl Globulin 4.2 gm/dL Albumin/Globulin Ratio 0.8 L (1-2) Urine Color (Yellow) Urine Appearance (Clear) Urine pH (5.0-8.0) Ur Specific [place] (1.005-1.030) Urine Protein (Negative) Urine Glucose (UA) (Negative) Urine Ketones (Negative) Urine Occult Blood (Negative) Urine Nitrite (Negative) Urine Bilirubin (Negative) Urine Urobilinogen (0.2-1.0) Ur Leukocyte Esterase (Negative) 05/17/19 05/18/19 05/18/19 Range/Units 17:40 04:33 04:33 WBC 14.99 H (4.23-9.07) K/mm3 RBC 4.85 (4.63-6.08) M/mm3 Hgb 13.5 L (13.7-17.5) gm/L Hct 42.4 (40.1-51.0) % MCV 87.4 (79.0-92.2) fl MCH 27.8 (25.7-32.2) pg MCHC 31.8 L (32.2-35.5) g/dl RDW Std Deviation 42.9 (35.1-43.9) fL Plt Count 265 (163-337) K/mm3 MPV 11.4 (9.4-12.3) fl Neut % (Auto) 68.7 H (34.0-67.9) % Lymph % (Auto) 21.9 (21.8-53.1) % [place] % (Auto) 8.3 (5.3-12.2) % Eos % (Auto) 0.6 L (0.8-7.0) Baso % (Auto) 0.2 (0.1-1.2) % Neut # (Auto) 10.30 H (1.78-5.38) K/mm3 Lymph # (Auto) 3.29 (1.32-3.57) K/mm3 [place] # (Auto) 1.24 H (0.30-0.82) K/mm3 Eos # (Auto) 0.09 (0.04-0.54) K/mm3 Baso # (Auto) 0.03 (0.01-0.08) K/mm3 D-Dimer, Quantitative (0.19-0.50) mg/L Puncture Site ABG pH (7.35-7.45) ABG pCO2 (35.0-45.0) mmHg ABG pO2 (80.0-100.0) mmHg ABG HCO3 (22.0-26.0) meq/L ABG O2 Saturation (96.0-97.0) % ABG Base Excess (-2-2.0) Leon Test A-a Gradient mmHg O2 Delivery Device FiO2 (21.00-100.00) % PEEP cmH20 Pressure Support cmH2O Sodium 139 (136-145) mEq/L Potassium 4.1 (3.5-5.1) mEq/L Chloride 101 (98-107) mEq/L Carbon Dioxide 29 (21-32) mEq/L Anion Gap 13.1 (5-15) BUN 33 H (7-18) mg/dL Creatinine 1.9 H (0.7-1.3) mg/dL Est Cr Clr Drug Dosing 56.70 Estimated GFR (MDRD) 40 (>60) mL/min BUN/Creatinine Ratio 17.4 (14-18) Glucose 124 H (74-106) mg/dL POC Glucose (70-105) mg/dL Calcium 9.0 (8.5-10.1) mg/dL Total Bilirubin 0.8 (0.2-1.0) mg/dL AST 29 (15-37) U/L ALT 72 H (16-63) U/L Alkaline Phosphatase 54 (46-116) U/L Troponin I < 0.017 (0.00-0.056) ng/mL NT-Pro-B Natriuret Pep 1451 H (0-125) pg/mL Total Protein 6.7 (6.4-8.2) g/dl Albumin 2.8 L (3.4-5.0) g/dl Globulin 3.9 gm/dL Albumin/Globulin Ratio 0.7 L (1-2) Urine Color (Yellow) Urine Appearance (Clear) Urine pH (5.0-8.0) Ur Specific [place] (1.005-1.030) Urine Protein (Negative) Urine Glucose (UA) (Negative) Urine Ketones (Negative) Urine Occult Blood (Negative) Urine Nitrite (Negative) Urine Bilirubin (Negative) Urine Urobilinogen (0.2-1.0) Ur Leukocyte Esterase (Negative) 05/18/19 05/18/19 05/18/19 Range/Units 04:33 06:31 09:20 WBC (4.23-9.07) K/mm3 RBC (4.63-6.08) M/mm3 Hgb (13.7-17.5) gm/L Hct (40.1-51.0) % MCV (79.0-92.2) fl MCH (25.7-32.2) pg MCHC (32.2-35.5) g/dl RDW Std Deviation (35.1-43.9) fL Plt Count (163-337) K/mm3 MPV (9.4-12.3) fl Neut % (Auto) (34.0-67.9) % Lymph % (Auto) (21.8-53.1) % [place] % (Auto) (5.3-12.2) % Eos % (Auto) (0.8-7.0) Baso % (Auto) (0.1-1.2) % Neut # (Auto) (1.78-5.38) K/mm3 Lymph # (Auto) (1.32-3.57) K/mm3 [place] # (Auto) (0.30-0.82) K/mm3 Eos # (Auto) (0.04-0.54) K/mm3 Baso # (Auto) (0.01-0.08) K/mm3 D-Dimer, Quantitative (0.19-0.50) mg/L Puncture Site Rt radial ABG pH 7.37 (7.35-7.45) ABG pCO2 50.1 H (35.0-45.0) mmHg ABG pO2 79.0 L (80.0-100.0) mmHg ABG HCO3 28.1 H (22.0-26.0) meq/L ABG O2 Saturation 95.0 L (96.0-97.0) % ABG Base Excess 2.4 H (-2-2.0) Leon Test Positive A-a Gradient 114 mmHg O2 Delivery Device Bipap FiO2 40.00 (21.00-100.00) % PEEP 7.0 cmH20 Pressure Support 18.0 cmH2O Sodium (136-145) mEq/L Potassium (3.5-5.1) mEq/L Chloride (98-107) mEq/L Carbon Dioxide (21-32) mEq/L Anion Gap (5-15) BUN (7-18) mg/dL Creatinine (0.7-1.3) mg/dL Est Cr Clr Drug Dosing Estimated GFR (MDRD) (>60) mL/min BUN/Creatinine Ratio (14-18) Glucose (74-106) mg/dL POC Glucose 107 H (70-105) mg/dL Calcium (8.5-10.1) mg/dL Total Bilirubin (0.2-1.0) mg/dL AST (15-37) U/L ALT (16-63) U/L Alkaline Phosphatase (46-116) U/L Troponin I (0.00-0.056) ng/mL NT-Pro-B Natriuret Pep 1763 H (0-125) pg/mL Total Protein (6.4-8.2) g/dl Albumin (3.4-5.0) g/dl Globulin gm/dL Albumin/Globulin Ratio (1-2) Urine Color (Yellow) Urine Appearance (Clear) Urine pH (5.0-8.0) Ur Specific [place] (1.005-1.030) Urine Protein (Negative) Urine Glucose (UA) (Negative) Urine Ketones (Negative) Urine Occult Blood (Negative) Urine Nitrite (Negative) Urine Bilirubin (Negative) Urine Urobilinogen (0.2-1.0) Ur Leukocyte Esterase (Negative) 05/18/19 Range/Units 10:13 WBC (4.23-9.07) K/mm3 RBC (4.63-6.08) M/mm3 Hgb (13.7-17.5) gm/L Hct (40.1-51.0) % MCV (79.0-92.2) fl MCH (25.7-32.2) pg MCHC (32.2-35.5) g/dl RDW Std Deviation (35.1-43.9) fL Plt Count (163-337) K/mm3 MPV (9.4-12.3) fl Neut % (Auto) (34.0-67.9) % Lymph % (Auto) (21.8-53.1) % [place] % (Auto) (5.3-12.2) % Eos % (Auto) (0.8-7.0) Baso % (Auto) (0.1-1.2) % Neut # (Auto) (1.78-5.38) K/mm3 Lymph # (Auto) (1.32-3.57) K/mm3 [place] # (Auto) (0.30-0.82) K/mm3 Eos # (Auto) (0.04-0.54) K/mm3 Baso # (Auto) (0.01-0.08) K/mm3 D-Dimer, Quantitative (0.19-0.50) mg/L Puncture Site ABG pH (7.35-7.45) ABG pCO2 (35.0-45.0) mmHg ABG pO2 (80.0-100.0) mmHg ABG HCO3 (22.0-26.0) meq/L ABG O2 Saturation (96.0-97.0) % ABG Base Excess (-2-2.0) Leon Test A-a Gradient mmHg O2 Delivery Device FiO2 (21.00-100.00) % PEEP cmH20 Pressure Support cmH2O Sodium (136-145) mEq/L Potassium (3.5-5.1) mEq/L Chloride (98-107) mEq/L Carbon Dioxide (21-32) mEq/L Anion Gap (5-15) BUN (7-18) mg/dL Creatinine (0.7-1.3) mg/dL Est Cr Clr Drug Dosing Estimated GFR (MDRD) (>60) mL/min BUN/Creatinine Ratio (14-18) Glucose (74-106) mg/dL POC Glucose (70-105) mg/dL Calcium (8.5-10.1) mg/dL Total Bilirubin (0.2-1.0) mg/dL AST (15-37) U/L ALT (16-63) U/L Alkaline Phosphatase (46-116) U/L Troponin I (0.00-0.056) ng/mL NT-Pro-B Natriuret Pep (0-125) pg/mL Total Protein (6.4-8.2) g/dl Albumin (3.4-5.0) g/dl Globulin gm/dL Albumin/Globulin Ratio (1-2) Urine Color Yellow (Yellow) Urine Appearance Clear (Clear) Urine pH 6.0 (5.0-8.0) Ur Specific [place] 1.025 (1.005-1.030) Urine Protein 2+ H (Negative) Urine Glucose (UA) Negative (Negative) Urine Ketones Negative (Negative) Urine Occult Blood Negative (Negative) Urine Nitrite Negative (Negative) Urine Bilirubin Negative (Negative) Urine Urobilinogen 0.2 (0.2-1.0) Ur Leukocyte Esterase Negative (Negative) Med Orders - Current: Current Medications Acetaminophen (Tylenol) 650 mg PO Q4H PRN PRN Reason: Pain (Mild 1-3)/fever Amiodarone HCl (Cordarone) 400 mg PO DAILY [facility] Last Admin: 05/18/19 08:07 Dose: 400 mg Apixaban (Eliquis) 5 mg PO BID [facility] Last Admin: 05/18/19 08:07 Dose: 5 mg Doxycycline Hyclate (Vibramycin) 100 mg PO Q12HR [facility] Last Admin: 05/18/19 08:07 Dose: 100 mg Metoprolol Tartrate (Lopressor) 25 mg PO Q12H [facility] Last Admin: 05/18/19 10:03 Dose: 25 mg Metoprolol Tartrate (Lopressor) 100 mg PO Q12H [facility] Last Admin: 05/18/19 10:03 Dose: 100 mg Ondansetron HCl (Zofran Odt) 4 mg PO Q4H PRN PRN Reason: nausea, able to take PO Ondansetron HCl (Zofran) 4 mg IV Q4H PRN PRN Reason: Nausea/Vomiting Rosuvastatin Calcium (Crestor) 10 mg PO DAILY [facility] Last Admin: 05/18/19 08:07 Dose: 10 mg Sodium Chloride (Saline Flush) 10 ml FLUSH ASDIRECTED PRN PRN Reason: Keep Vein Open Last Admin: 05/17/19 17:50 Dose: 10 ml Spironolactone (Aldactone) 25 mg PO DAILY [facility] Temazepam (Restoril) 15 mg PO BEDTIME PRN PRN Reason: Sleep Last Admin: 05/17/19 22:44 Dose: 15 mg Discontinued Medications Albuterol/Ipratropium (Duoneb 3.0-0.5 Mg/3 Ml) 3 ml NEB ONETIME ONE Stop: 05/17/19 17:43 Last Admin: 05/17/19 17:49 Dose: 3 ml Doxycycline Hyclate (Vibramycin) 100 mg PO ONETIME ONE Stop: 05/18/19 00:31 Last Admin: 05/18/19 00:35 Dose: 100 mg Furosemide (Lasix) 80 mg IVPUSH NOW ONE Stop: 05/17/19 18:06 Last Admin: 05/17/19 18:23 Dose: 80 mg Furosemide (Lasix) 80 mg IVPUSH NOW ONE Stop: 05/18/19 09:38 Hydromorphone HCl (Dilaudid) 0.5 mg IVPUSH ONETIME ONE Stop: 05/17/19 17:48 Last Admin: 05/17/19 17:55 Dose: 0.5 mg - Exam Quality Assessment: Reports: Supplemental Oxygen General: Reports: Alert, Oriented HEENT: Reports: Pupils Equal, Pupils Reactive, EOMI, Mucous Membr. Moist/[place] Neck: Reports: Supple Lungs: Reports: Clear to Auscultation, Normal Respiratory Effort Cardiovascular: Reports: Regular Rate, Regular Rhythm GI/Abdominal Exam: Normal Bowel Sounds, Soft, Non-Tender, No Organomegaly, No Distention, No Abnormal Bruit, No Mass, Pelvis Stable (Male) Exam: No Hernia, Normal Inspection, Normal Prostate, Circumcised Rectal (Males) Exam: Normal Exam, Normal Rectal Tone, Prostate Normal Back Exam: Reports: Normal Inspection, Full Range of Motion Extremities: Normal Inspection, Normal Range of Motion, Non-Tender, No Pedal Edema, Normal Capillary Refill Skin: Reports: Warm, Dry, Intact Wound/Incisions: Reports: Healing Well Neurological: Reports: No New Focal Deficit Psy/Mental Status: Reports: Alert, Normal Affect, Normal Mood EKG INTERPRETATION EKG Date: 05/17/19 Rhythm: A-Fib [place]: Normal P-Wave: Present QRS: Normal ST-T: Normal QT: Normal
--- NOTE | 2019-05-18 18:04 | DISCH ---
ADMISSION DATE: 05/17/2019 DISCHARGE DATE: 05/18/2019 Transfer summary to [facility] [place] REASON FOR TRANSFER: 1. Acute pulmonary hypoxemia and congestive heart failure refractory to current treatment. 2. Need for further pulmonary, cardiology, and possibly renal consultations. HISTORY OF PRESENT ILLNESS: This gentleman, born on 1980, 38 years old, who was readmitted after recent discharge yesterday from [facility] after presenting initially with acute pulmonary edema and atrial fibrillation, which converted in the ER after a loading dose of IV Cardizem. The patient was placed on beta wilbert and diuresed and does have a history of chronic question mostly ischemic cardiomyopathy with an ejection fraction of around 25%. The patient has had previous evaluation in [place], where he is from. 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 The patient has been Lasix dependent for the last 2 years, but never had significant pulmonary edema episodes by his history. The patient has had chronic edema, increasing orthopnea, increasing paroxysmal nocturnal dyspnea, and panic symptoms which started approximately 2 months ago. The patient initially described chest pain in the lower ribs, anterior chest, and a heavy sensation, like he could not catch his breath, and he has been sitting up constantly. The patient was driving, not feeling well for about 2 days before he presented originally to the hospital. Please see that admission note. After presentation and being found to be in atrial fibrillation, the patient was started on beta wilbert. He was doing fairly well until yesterday morning when he became acutely dyspneic while standing in the shower and passed out. The patient is unclear whether he actually totally passed out or not, but was able to call the ambulance. The patient has never previously been on oxygen. The patient has a history of sleep apnea. Did have apnea treatment recommended, but was unable to do this because of financial difficulties. This was recommended in July. The patient also had previously left his medications in [place] and decided to go to [place], and this was thought to be a precipitating event in terms of his heart failure. The patient has a longstanding history of right atrial enlargement. Apparently, he has had a previous catheterization which, by his report, did not show any significant coronary artery disease, but has abnormalities. Copies of this report are still pending. Dr. Anderson did talk with his filling hand. He stated that his ejection fraction from a myocardial perfusion scan around 25% was thought to be a low estimate. The patient has not had any previously known episodes of ventricular tachycardia, syncope by history, or any other significant arrhythmias other than chronic atrial fibrillation. The patient has been on anticoagulation with Eliquis and has been reestablished with his medications on his original discharge, but apparently was probably off his anticoagulants as well as amiodarone, Lasix, and other medicines previous to his first admission. The patient was readmitted yesterday in acute respiratory distress again. Repeat chest x-ray revealed perhaps some increasing edema on the left side and pulmonary effusion on the left side with increased pulmonary vascular markings and enlarged heart. The patient was re-evaluated and found had have negative troponin. His white count was elevated at 15.5 with slight increase in neutrophils, but no bands. The patient did have a D-dimer of 0.95. The patient was admitted for further diuresis and was given IV Lasix and had a prompt good response and improvement in his symptoms. The patient's additional labs showed elevations of his AST and ALT. Normal bilirubin. Initial NT-BNP was 1451, and the patient's creatinine was 1.7 on admission with normal electrolytes. The patient was known to be hypoproteinemic with an albumin of 3.2. Urinalysis was remarkable for 2+ protein. The patient had an uneasy night. He has increased from 2 L back to 4 L, continued to be quite dyspneic, and was initially started on BiPAP with some improvement, but because of the patient's anxiety over tight mask, he requested to be switched back to nasal cannula, was placed back on 4 L nasal cannula, then switched back in to BiPAP as he apparently felt worse on nasal cannula. Blood gas did show a pH of 7.37, a pCO2 of 50, a PO2 of 79, bicarbonate of 28, and O2 saturation of 95% with an AA gradient of 114 on 40% BiPAP with PEEP of 7, pressure support of 18. The patient was seen on rounds this morning. Continues to be mildly dyspneic, although he states he is better. The patient has been given another 80 IV of Lasix, and this appears to be giving him some immediate relief. The patient's blood sugar was found to be elevated mildly. A1c was ordered, but is pending. The patient has not had iron or B12 levels on this hospitalization, and we are reviewing his previous labs. The patient was started on doxycycline last night per Dr. Anderson because of the possibility of infiltrate. The patient denies any fever, any chills, or any sputum production, but does have difficulty getting his breath in and a feeling of heaviness in his chest. He is not coughing unless he tries to lay back. He has to sleep at 60 degrees, but this is chronic. The patient relates that he is extremely thirsty and has been drinking unrestricted. He estimates he drank 2 L yesterday after discharge. He drinks unsweetened tea and water for the most part. The patient also has been having some power drinks. The patient denies any previous history of ventricular tachycardia, ventricular fibrillation, or other significant arrhythmia other than the chronic atrial fibrillation. He goes back into sinus off and on, but from his history, considered to be in chronic atrial fibrillation. He also has a history of a left leg superficial clot question, which has been evaluated by Vascular Surgery. He denies history of neuropathy, but he is extremely sedentary. He does not follow any specific diet other than salt restriction. His weight on discharge was 1 pound less than his weight on admission at 354 and 355 pounds respectively. The patient denies any history of diabetes. Family history is reviewed. There is no history of coagulopathies, known history of congenital heart disease, known history of early stroke, cardiomyopathy, ischemic. The patient has never smoked. He has never chewed tobacco, and he has no other known lung disease. No history of hepatitis or transfusion, he tells me. The patient does have a good appetite, but he has been nauseated off and on for the past several weeks. The cause of this unclear. He is not using any antiinflammatories. The patient is said to have proteinuria of unknown cause. Reviewing Dr. Anderson's note, this is not known as to why. The patient was seen on rounds this morning, and he is again doing slightly better on 4 L of continuous BiPAP, sitting in bed. The patient is morbidly obese and does have 2+ edema. His lungs sounds are diminished, but without definite rales or rhonchi. The patient has no JVD, sitting up. Lying back at 30 degrees, there is no JVD. Abdominal exam is benign otherwise. No bruits appreciated. No carotid bruits. Pulses in the feet are 1+, and posterior tibials are 1+. ASSESSMENT: 1. Profound congestive heart failure in a patient with multiple chronic medical problems. 2. Unrestricted fluid intake, which may have triggered this. 3. Syncope episode by history, unwitnessed, without evidence of arrhythmia on monitoring during recent hospital stay other than atrial fibrillation with rapid ventricular response, recently converted and the patient started on low-dose beta wilbert. 4. Chronic renal insufficiency with proteinuria, mild by initial evaluation, but a history of prior proteinuria with EGFR of approximately 40. 5. Morbid obesity. 6. Untreated sleep apnea. 7. Low ejection fraction, heart failure, chronic, with the patient on anticoagulation. The patient's filling hand has been consulted initially by admitting physician, Dr. Anderson. Please see previous admission note for details of that discussion and evaluation. PLAN: Because of the patient's elevated D-dimer and his history of renal insufficiency, I am reluctant to give dye given that he is already anticoagulated. I have discussed with Dr. Fernando Dozier that he is not at this point stable and that I feel further pulmonology and cardiology consultation may be helpful to answer multiple issues for this patient. There is also the issue of the patient responding and then relapsing quickly, but I suspect, from history obtained from the patient, that his fluid intake may be partially responsible given his chronic heart failure. The patient may benefit from a repeat echocardiogram, but this has not been pursued as of yet as the patient was elected to be transferred after discussion with Dr. Dozier. The patient may require consideration of a V/Q scan to rule out other pulmonary issues, but this is better left to especially Medicine so as to avoid dye and further renal injury if possible. This has been discussed with the patient. He is agreeable. At this point, he would like to continue his trip to [place]. I have discussed with him that he needs to be on CPAP long-term and lose weight because these are likely contributors to his pulmonary edema episodes. I have also discussed that he should not drink power drinks because of the sugar and caffeine in them and his known atrial fibrillation. I have discussed that the patient should be on a 1500 mL fluid restriction. We will follow up. The patient has been stabilized for transfer, but will be transferred on BiPAP, O2, and telemetry. The patient has been participating in all decisions and is agreeable to this. Dr. Dozier has graciously accepted transfer, and we will do this shortly. The patient will be continued on his current medications, but additional medications will be held until the patient has been received by [facility] and they can review the situation. FINAL DIAGNOSIS: DISCHARGE MEDICATIONS: DIET: ACTIVITY: FOLLOW-UP: CONDITION ON DISCHARGE: [facility] /[id number]
--- NOTE | 2019-05-21 14:33 | DISCH ---
ADMISSION DATE: 05/17/2019 DISCHARGE DATE: 05/18/2019 DISPOSITION: To [facility]. REASON FOR TRANSFER: Requiring higher level of care including Pulmonary and Cardiology and Nephrology considerations. DISCHARGE/TRANSFER DIAGNOSES: 1. Acute pulmonary edema secondary to congestive heart failure, etiology question ischemic cardiomyopathy. 2. Atrial fibrillation with rapid ventricular response, converted to sinus rhythm. 3. Idiopathic cardiomyopathy with chronic heart failure. 4. Elevated D-dimer of unknown significance. The patient is on anticoagulation secondary to chronic atrial fibrillation. 5. History of morbid obesity. 6. History of sleep apnea. 7. History of CO2 retention and ventilatory dysfunction, question secondary to obesity or other cause. 8. Chronic renal insufficiency. Creatinine 1.7 to 1.9. 9. Mild anemia. 10.Elevated blood sugars. 11.Mild elevation of liver function tests without history of significant liver disease. HOSPITAL COURSE: This 38-year-old male was discharged yesterday from [facility] after being presenting with acute heart failure while traveling en route from [place] to [place]. The patient had become acutely dyspneic and passed out in the shower. Originally, he was having a 2-day history of increasing shortness of breath coupled with dizziness and coupled with chest pain initially, which was described as bilateral lower rib and chest wall pain, which increased with exertional effort. However, the patient was feeling panicky, dizzy, does believe he had a syncopal episode. DICTATION ENDS HERE. FINAL DIAGNOSIS: CONDITION [facility] DISCHARGE: [facility] /[id number]
== END 2019-05-18 13:43 | DRG 291 ==
LOC: JD.ED 17:27 → JD.MS 19:25
PROVIDERS: ADMIT Family Medicine; ATTEND Family Medicine
PROC: 5A09357 Assistance with Respiratory Ventilation, Less than 24 Consecutive Hours, Continuous Positive Airway Pressure (ICD-10-PCS; principal; 2019-05-17)
DX: I13.0 Hypertensive heart and chronic kidney disease with heart failure and stage 1 through stage 4 chronic kidney disease, or unspecified chronic kidney disease (principal); J96.21 Acute and chronic respiratory failure with hypoxia; I50.43 Acute on chronic combined systolic (congestive) and diastolic (congestive) heart failure; Z68.41 Body mass index [BMI] 40.0-44.9, adult; E66.01 Morbid (severe) obesity due to excess calories; G47.30 Sleep apnea, unspecified; E11.22 Type 2 diabetes mellitus with diabetic chronic kidney disease; N18.3 Chronic kidney disease, stage 3 (moderate); I48.0 Paroxysmal atrial fibrillation; R91.8 Other nonspecific abnormal finding of lung field; R80.9 Proteinuria, unspecified; I42.9 Cardiomyopathy, unspecified; Z79.899 Other long term (current) drug therapy
CPT/HCPCS: 36415; 36600; 71045; 71045-26; 80053; 81001; 82803; 82962; 83880; 84403; 84484; 85025; 85379; 93005; 93306; 94640; 94660; 94761; 96374; 96375; 99285-25; A9270-GY; J1170; J1940; J7620-GY